=== PATIENT | female | born 1960 | race Caucasian/White ===

== ENCOUNTER 2018-05-29 13:08 | Emergency (ER) | payer OTHER ==
[2018-05-29] MEDS ORDERED: FENTANYL CITR 100 MCG/2 ML ONE (13:41)
[2018-05-29] MEDS ORDERED: ONDANSETRON 4 MG/2 ML VIAL ONE (13:41)
[2018-05-29 13:54] LABS: Absolute Lymphocytes (CBC) 2.6 K/uL (0.7-4.9); Absolute Monocytes 0.7 K/uL (0.1-1.3); Absolute Neutrophil 6.2 K/uL (1.8-8.0); Basophils % 0.9 % (0-1.3); Eosinophils % 5.8 % (0-4.4); Hematocrit 41.3 % (36.0-45.0); Lymphocytes % 25.6 % (15.3-44.8); Monocytes % 6.5 % (3.3-12.3)
[2018-05-29 14:11] LABS: Albumin 4.1 g/dL (3.4-5.0); Bilirubin Direct 0.1 mg/dL (0-0.2); Bilirubin Total 0.5 mg/dL (0.2-1.0); Potassium 3.3 mmol/L (3.5-5.1); Protein, Total 8.2 g/dL (6.4-8.2)
--- NOTE | 2018-05-29 14:57 | RAD REPORT ---
EXAM DESCRIPTION: CTAbdomen Pelvis W Contrast - 05/29/2018 2:29 pm CLINICAL HISTORY: Abdominal pain. iv only;Abd pain COMPARISON: Head C Spine Cap W Con dated 08/02/2016 TECHNIQUE: Biphasic CT imaging of the abdomen and pelvis was performed with 100 ml non-ionic IV cont rast. All CT scans are performed using dose optimization technique as appropriate and may include automated exposure control or mA/KV adjustment according to patient size. FINDINGS: The lung bases are clear. Advanced fatty liver infiltration is noted. Vague low-density area is seen in the inferior right lobe of the liver measuring 12 mm, incompletely characterized. An aggressive mass is felt to be on likely . No intra or extrahepatic biliary dilatation seen. The spleen, pancreas, adrenal glands and kidneys within normal limits. No bowel obstruction, free air, free fluid or abscess. Sigmoid diverticulosis coli is present without diverticulitis. The appendix is mildly prominent in size and contains hyperdense material within the lumen. The appendix measures 11 mm in short axis. No significant periappendiceal fat stranding is se en. No evidence of significant lymphadenopathy. Postsurgical changes affect the lower lumbar spine. IMPRESSION: The appendix is prominent in size in the right lower quadrant measuring 11-12 mm. High d ensity material is present within the appendix lumen which could represent a large appendicolith. No significant periappendiceal fat stranding is seen, however advise physical exam correlation for possi ble early appendicitis. Advanced fatty liver. Mild sigmoid diverticulosis is present without diverticulitis.
--- NOTE | 2018-05-29 15:21 | ER ---
Nurse's Notes [facility] Name: Leonarda Hopkins Age: 57 yrs Sex: Female : 1960 Arrival Date: 05/29/2018 Time: 13:04 Bed 20 Private MD: Diagnosis: Diverticulosis of large intestine without perforation or abscess without bleeding;Lower abdominal pain, unspecified Presentation: 05/29 13:04 Presenting complaint: Patient states: LLQ pain x 2 days, denies n/v/d. Transition of sv care: patient was not received from another setting of care. Onset of symptoms was May 27, 2018. Care prior to arrival: None. 13:04 Method Of Arrival: Ambulatory sv 13:04 Acuity: MATTHEW 2 sv Historical: - Allergies: 13:05 No Known Allergies; sv - PMHx: 13:05 Hypertension; sv - PSHx: 13:05 back; sv - Immunization history:: Flu vaccine is not up to date. - Social history:: Smoking status: Patient/guardian denies using tobacco. - Ebola Screening: : No symptoms or risks identified at this time. Screenin:31 Abuse screen: Denies threats or abuse. Nutritional screening: No deficits noted. em Tuberculosis screening: No symptoms or risk factors identified. Fall Risk None identified. Assessment: 13:31 General: Appears in no apparent distress. uncomfortable, Behavior is calm, cooperative, em Denies fever. Pain: Complains of pain in left lower quadrant Pain currently is 8 out of 10 on a pain scale. Quality of pain is described as stabbing, Pain began 2-3 days ago. Neuro: Level of Consciousness is awake, alert, obeys commands, Oriented to person, place, time, situation. Cardiovascular: Capillary refill < 3 seconds Patient's skin is warm and dry. Respiratory: Airway is patent Respiratory effort is even, unlabored, Respiratory pattern is regular, symmetrical. GI: Abdomen is flat, Bowel sounds present X 4 quads. Abd is soft X 4 quads Abdomen is tender to palpation in left lower quadrant Patient currently denies diarrhea, nausea, vomiting. : No signs and/or symptoms were reported regarding the genitourinary system. Derm: Skin is intact, is healthy with good turgor, Skin is pink, warm \T\ dry. Musculoskeletal: Range of motion: intact in all extremities. 13:35 General: The previous assessment is accurate, call light remains within reach. ss 15:04 Reassessment: Patient appears in no apparent distress at this time. Patient and/or em family updated on plan of care and expected duration. Pain level reassessed. Patient is alert, oriented x 3, equal unlabored respirations, skin warm/dry/pink. pending results from CT. Vital Signs: 13:05 BP 185 / 112; Pulse 93; Resp 18; Temp 97.9; Pulse Ox 99% ; Weight 72.57 kg; Height 5 sv ft. 4 in. (162.56 cm); Pain 8/10; 13:30 BP 153 / 83; Pulse 68; Resp 16; Pulse Ox 100% on R/A; Pain 8/10; em 15:05 BP 139 / 85; Pulse 75; Resp 18; Pulse Ox 99% on R/A; em 13:05 Body Mass Index 27.46 (72.57 kg, 162.56 cm) sv ED Course: 13:04 Patient arrived in ED. sv 13:05 Triage completed. sv 13:06 Arm band placed on. sv 13:12 Jesse Euceda PA is PHCP. jr8 13:12 Sai Pang MD is Attending Physician. jr8 13:20 Juanpablo Diez LVN is Primary Nurse. em 13:31 Radiology exam delayed due to lab results not completed at this time. (BUN/Creatinine). vm2 13:31 Patient has correct armband on for positive identification. Placed in gown. Bed in low em position. Call light in reach. Adult w/ patient. Pulse ox on. NIBP on. 13:40 Initial lab(s) drawn, by me, sent to lab. Inserted saline lock: 20 gauge in right em antecubital area, using aseptic technique. Blood collected. 14:[address] vm2 14:27 CT completed. Patient tolerated procedure well. Patient moved back from CT. vm2 15:03 Urine collected: clean catch specimen, clear. dh3 15:20 Jeremiah Sosa MD is Referral Physician. jr8 15:25 No provider procedures requiring assistance completed. IV discontinued, intact, em bleeding controlled, No redness/swelling at site. Pressure dressing applied. Administered Medications: 13:42 Drug: fentaNYL (PF) 50 mcg Route: IVP; Site: right antecubital; 15:04 Follow up: Response: No adverse reaction em 13:42 Drug: Zofran 4 mg Route: IVP; Site: right antecubital; ss 15:04 Follow up: Response: No adverse reaction em Outcome: 15:21 Discharge ordered by MD. barboza 15:25 Discharged to home ambulatory, with family. em 15:25 Condition: good 15:25 Discharge instructions given to patient, Instructed on discharge instructions, follow up and referral plans. no drinking with medication, no driving heavy equipment, medication usage, Demonstrated understanding of instructions, follow-up care, medications, Prescriptions given X 3. 15:34 Patient left the ED. em Signatures: Francoise Chen RN RN Juanpablo Diez, WELDING MACHINE FEEDER WELDING MACHINE FEEDER em Kimberley Tamez RN RN Jesse Euceda, CHAY CARTWRIGHT jrMelvi Polo 2 Marsha Isabel 3 Corrections: (The following items were deleted from the chart) 13:07 13:04 Acuity: MATTHEW 3 sv sv 13:07 13:05 Pulse 93bpm; Resp 18bpm; Pulse Ox 99%; Temp 97.9F; 72.57 kg; Height 5 ft. 4 in.; sv BMI: 27.4; Pain 8/10; sv
--- NOTE | 2018-05-29 15:22 | EDPHYS ---
Physician Documentation [facility] Name: Leonarda Hopkins Age: 57 yrs Sex: Female : 1960 Arrival Date: 05/29/2018 Time: 13:04 Bed 20 Private MD: ED Physician Sai Pang HPI: 05/29 14:03 This 57 yrs old Female presents to ER via Ambulatory with complaints of jr8 Abdominal Pain. 14:03 The patient presents with abdominal pain in the left lower quadrant. Onset: The jr8 symptoms/episode began/occurred acutely, 3 day(s) ago. The symptoms do not radiate. Associated signs and symptoms: none. The symptoms are described as stabbing. Modifying factors: The symptoms are alleviated by nothing, the symptoms are aggravated by nothing. Severity of pain: At its worst the pain was moderate in the emergency department the pain is unchanged. The patient has not experienced similar symptoms in the past. The patient has not recently seen a physician. Historical: - Allergies: 13:05 No Known Allergies; sv - PMHx: 13:05 Hypertension; sv - PSHx: 13:05 back; sv - Immunization history:: Flu vaccine is not up to date. - Social history:: Smoking status: Patient/guardian denies using tobacco. - Ebola Screening: : No symptoms or risks identified at this time. ROS: 14:03 Eyes: Negative for injury, pain, redness, and discharge, ENT: Negative for injury, jr8 pain, and discharge, Neck: Negative for injury, pain, and swelling, Respiratory: Negative for shortness of breath, cough, wheezing, and pleuritic chest pain, Back: Negative for injury and pain, MS/Extremity: Negative for injury and deformity, Skin: Negative for injury, rash, and discoloration, Neuro: Negative for headache, weakness, numbness, tingling, and seizure. 14:03 Abdomen/GI: Positive for abdominal pain, Negative for nausea, vomiting, and diarrhea, abdominal cramps, abdominal distension, anorexia, dysphagia, hematemesis, black/tarry stool, rectal pain, rectal bleeding, bowel incontinence, flatulence. Exam: 14:03 Eyes: Pupils equal round and reactive to light, extra-ocular motions intact. Lids and jr8 lashes normal. Conjunctiva and sclera are non-icteric and not injected. Cornea within normal limits. Periorbital areas with no swelling, redness, or edema. ENT: Nares patent. No nasal discharge, no septal abnormalities noted. Tympanic membranes are normal and external auditory canals are clear. Oropharynx with no redness, swelling, or masses, exudates, or evidence of obstruction, uvula midline. Mucous membranes moist. Neck: Trachea midline, no thyromegaly or masses palpated, and no cervical lymphadenopathy. Supple, full range of motion without nuchal rigidity, or vertebral point tenderness. No Meningismus. Cardiovascular: Regular rate and rhythm with a normal S1 and S2. No gallops, murmurs, or rubs. Normal PMI, no JVD. No pulse deficits. Respiratory: Lungs have equal breath sounds bilaterally, clear to auscultation and percussion. No rales, rhonchi or wheezes noted. No increased work of breathing, no retractions or nasal flaring. Back: No spinal tenderness. No costovertebral tenderness. Full range of motion. Skin: Warm, dry with normal turgor. Normal color with no rashes, no lesions, and no evidence of cellulitis. MS/ Extremity: Pulses equal, no cyanosis. Neurovascular intact. Full, normal range of motion. Neuro: Awake and alert, GCS 15, oriented to person, place, time, and situation. Cranial nerves II-XII grossly intact. Motor strength 5/5 in all extremities. Sensory grossly intact. Cerebellar exam normal. Normal gait. 14:03 Abdomen/GI: Inspection: abdomen appears normal, Bowel sounds: active, all quadrants, Palpation: soft, in all quadrants, moderate abdominal tenderness, in the left lower quadrant, mass, is not appreciated, rebound tenderness, is not appreciated, voluntary guarding, is not appreciated, involuntary guarding, is not appreciated, no appreciated organomegaly, Indicators: McBurney's point is not tender, Munoz's sign is negative, Rovsing's sign is negative, Liver: tenderness, is not appreciated. Vital Signs: 13:05 BP 185 / 112; Pulse 93; Resp 18; Temp 97.9; Pulse Ox 99% ; Weight 72.57 kg; Height 5 sv ft. 4 in. (162.56 cm); Pain 8/10; 13:30 BP 153 / 83; Pulse 68; Resp 16; Pulse Ox 100% on R/A; Pain 8/10; em 15:05 BP 139 / 85; Pulse 75; Resp 18; Pulse Ox 99% on R/A; em 13:05 Body Mass Index 27.46 (72.57 kg, 162.56 cm) sv MDM: 13:12 Patient medically screened. jr8 15:13 Differential diagnosis: bowel obstruction, diverticulitis, non-specific abd pain, jr8 Pyelonephritis, Ureterolithiasis, urinary tract infection, ovarian cysts. Data reviewed: vital signs, nurses notes, lab test result(s), radiologic studies, CT scan, and as a result, I will discharge patient. Data interpreted: Pulse oximetry: on room air is 99 %. Interpretation: normal. Counseling: I had a detailed discussion with the patient and/or guardian regarding: the historical points, exam findings, and any diagnostic results supporting the discharge/admit diagnosis, lab results, radiology results, the need for outpatient follow up, a family practitioner, a microfilm processor, to return to the emergency department if symptoms worsen or persist or if there are any questions or concerns that arise at home. Response to treatment: the patient's symptoms have mildly improved after treatment. ED course: Patient has not had pain to right side of abdomen. Reassessed and still without pain on that side. Pain only to LLQ. Diverticulosis on scan seen without any other acute findings. Will treat as a subclinical infection of that area with antibiotics since pain is persisting. Otherwise needs to f/u with GI. If worse to come back for further evaluation. Patient good with this plan . 05/29 13:13 Order name: Basic Metabolic Panel [facility] 05/29 13:13 Order name: CBC with Diff 05/29 13:13 Order name: Creatinine for Radiology 05/29 13:13 Order name: Hepatic Function 05/29 13:13 Order name: Lipase [facility] 05/29 14:07 Order name: Creatinine (Radiology Only); Complete Time: 14:34 EDKS 05/29 14:08 Order name: CBC with Automated Diff; Complete Time: 14:34 EDKS 05/29 14:12 Order name: Basic Metabolic Panel; Complete Time: 14:34 EDKS 05/29 14:12 Order name: Liver (Hepatic) Function; Complete Time: 14:34 EDKS 05/29 14:12 Order name: Lipase; Complete Time: 14:34 EDKS 05/29 15:08 Order name: Urine Dipstick--Ancillary (enter results) 05/29 15:08 Order name: Urine --Ancillary (enter results) 05/29 15:26 Order name: Urine --Ancillary [facility] 05/29 15:26 Order name: Urine Dipstick-Ancillary [facility] 05/29 13:13 Order name: IV Saline Lock; Complete Time: 13:49 [facility] 05/29 13:13 Order name: Labs collected and sent; Complete Time: 13:49 [facility] 05/29 13:27 Order name: Urine Dipstick-Ancillary (obtain specimen); Complete Time: 15:03 [facility] 05/29 13:28 Order name: CT Abd/Pelvis - W/Contrast [facility] 05/29 14:58 Order name: CT; Complete Time: 14:59 EDMS Administered Medications: 13:42 Drug: fentaNYL (PF) 50 mcg Route: IVP; Site: right antecubital; ss 15:04 Follow up: Response: No adverse reaction em 13:42 Drug: Zofran 4 mg Route: IVP; Site: right antecubital; ss 15:04 Follow up: Response: No adverse reaction em Disposition: 16:44 Co-signature as Attending Physician, Sai Pang MD. ma2 Disposition: 05/29/18 15:21 Discharged to Home. Impression: Diverticulosis of large intestine without perforation or abscess without bleeding, Lower abdominal pain, unspecified. - Condition is Stable. - Discharge Instructions: Abdominal Pain, Adult, Diverticulosis. - Prescriptions for Cipro 500 mg Oral Tablet - take 1 tablet by ORAL route every 12 hours for 10 days; 20 tablet. Flagyl 500 mg Oral Tablet - take 1 tablet by ORAL route every 6 hours for 10 days; 40 tablet. Tylenol- Codeine #3 300-30 mg Oral Tablet - take 2 tablets by ORAL route every 6 hours As needed; 12 tablet. - Medication Reconciliation Form, Thank You Letter, Antibiotic Education, Prescription Opioid Use form. - Follow up: Jeremiah Sosa MD; When: 5 - 6 days; Reason: Recheck today's complaints, Continuance of care, Re-evaluation by your physician. - Problem is new. - Symptoms have improved. Signatures: Dispatcher [facility] Francoise Chan RN RN Juanpablo Gauthier, DRAWBENCH OPERATOR HELPER DRAWBENCH OPERATOR HELPER Kimberley Combs, TOMASA RN Jesse Madera PA PA jr8 Sai Pang MD MD ma2 Corrections: (The following items were deleted from the chart) 15:34 15:21 05/29/2018 15:21 Discharged to Home. Impression: Diverticulosis of large em intestine without perforation or abscess without bleeding; Lower abdominal pain, unspecified. Condition is Stable. Forms are Medication Reconciliation Form, Thank You Letter, Antibiotic Education, Prescription Opioid Use. Follow up: Jeremiah Sosa; When: 5 - 6 days; Reason: Recheck today's complaints, Continuance of care, Re-evaluation by your physician. Problem is new. Symptoms have improved. jr8
[2018-05-29 15:25] LABS: Urine Blood TRACE (NEG); Urine Glucose NEGATIVE (NEG); Urine Protein NEGATIVE (NEG); Urine Specific Gravity 1.015 (1.005-1.030)
== END 2018-05-29 15:34 | disposition home or self-care (01) ==
LOC: ER 13:08
DX: K57.30 Diverticulosis of large intestine without perforation or abscess without bleeding (principal); I10 Essential (primary) hypertension
CPT/HCPCS: 36415; 74177; 80048; 80076; 81003; 81025; 83690; 85025; 96374; 96375; 99284; J2405; J3010; Q9967

== ENCOUNTER 2018-08-19 08:37 | Observation (INO) | payer OTHER ==
[2018-08-19] MEDS ORDERED: ONDANSETRON 4 MG/2 ML VIAL ONE ×2 (09:28→16:39)
[2018-08-19] MEDS ORDERED: NA CHLORIDE 0.9% 1,000 ML ONE (09:28)
[2018-08-19 09:32] LABS: Absolute Lymphocytes (CBC) 0.9 K/uL (0.7-4.9); Absolute Monocytes 0.4 K/uL (0.1-1.3); Absolute Neutrophil 17.4 K/uL (1.8-8.0); Basophils % 0.4 % (0-1.3); Hematocrit 42.8 % (36.0-45.0); Lymphocytes % 4.6 % (15.3-44.8); Monocytes % 2.3 % (3.3-12.3); RBC Red Blood Cell Count 4.84 M/uL (3.86-4.86)
[2018-08-19 09:54] LABS: Albumin 4.2 g/dL (3.4-5.0); Bilirubin Direct 0.2 mg/dL (0-0.2); Bilirubin Total 0.8 mg/dL (0.2-1.0); Potassium 3.1 mmol/L (3.5-5.1); Protein, Total 8.8 g/dL (6.4-8.2)
[2018-08-19 11:35] LABS: Blood Morphology Comment NOT SEEN (NOT SEEN); Platelet Estimate ADEQ; Urine White Blood Cell Casts OK
[2018-08-19 11:40] LABS: Urine Blood 1+ (NEG); Urine Glucose NEGATIVE (NEG); Urine Protein 2+ (NEG); Urine Specific Gravity 1.025 (1.005-1.030)
--- NOTE | 2018-08-19 12:01 | EKG ---
Test Date: 2018-08-19 Test Time: 09:07:29 Sports Equipment Racker: GLORIA MEASUREMENT RESULTS: Intervals: Rate: 70 NH: 152 QRSD: 94 QT: 412 QTc: 444 [place]: P: 50 NH: 152 QRS: 21 T: 48 INTERPRETIVE STATEMENTS: Normal sinus rhythm Normal ECG Compared to ECG 08/02/2016 01:05:42 No significant changes Electronically Signed On 08-19-18 12:00:36 CDT by Jae Diamond
[2018-08-19] MEDS ORDERED: POTASSIUM CL SA 10 MEQ TAB PO ONE (12:02)
[2018-08-19] MEDS ORDERED: OSELTAMIVIR 75 MG CAP ONE (12:02)
--- NOTE | 2018-08-19 12:18 | RAD REPORT ---
EXAM DESCRIPTION: CTAbdomen Pelvis W Contrast - 08/19/2018 12:03 pm CLINICAL HISTORY: Abdominal pain. Abd pain;Nausea / vomiting COMPARISON: Abdomen Pelvis W Contrast dated 05/29/2018 TECHNIQUE: Biphasic CT imaging of the abdomen and pelvis was performed with 100 ml non-ionic IV cont rast. All CT scans are performed using dose optimization technique as appropriate and may include automated exposure control or mA/KV adjustment according to patient size. FINDINGS: The lung bases are clear. The liver demonstrates mild fatty liver. The spleen, pancreas, adrenal glands and kidneys are within normal limits. No bowel obstruction, free air, free fluid or abscess. The appendix is dilated to 17 mm and inflamed compatible with acute appendicitis. An appendicolith is noted at the base of the appendix. No evide nce of significant lymphadenopathy. No suspicious bony findings. IMPRESSION: Acute appendicitis.
--- NOTE | 2018-08-19 12:29 | EDPHYS ---
Physician Documentation [facility] Name: Leonarda Hopkins Age: 58 yrs Sex: Female : 1960 Arrival Date: 08/19/2018 Time: 08:40 Bed 14 Private MD: Jeremiah Cedeno E ED Physician Yaw Fay HPI: 08/19 08:54 This 58 yrs old Female presents to ER via Ambulatory with complaints of rn Headache, Vomiting. 08:55 REports felt sick since yesterday, reports congestion, vomiting, abd cramping/pain, has rn thrown up a lot of times today, no known sick contacts, no diarrhea, no chest pain/sob/neck pain or stiffness. States main complaint is abd pain and muscle aches diffusely. . Onset: The symptoms/episode began/occurred yesterday. Severity of symptoms: At their worst the symptoms were mild in the emergency department the symptoms are unchanged. The patient has experienced similar episodes in the past. The patient has not recently seen a physician. Historical: - Allergies: 08:45 No Known Allergies; sv - PMHx: 08:45 Hypertension; sv - PSHx: 08:45 back; sv - Immunization history:: Adult Immunizations up to date. - Family history:: not pertinent. - Ebola Screening: : Patient denies travel to an Ebola-affected area in the 21 days before illness onset. - Hospitalizations: : No recent hospitalization is reported. ROS: 08:55 Constitutional: + fever Eyes: Negative for injury, pain, redness, and discharge, ENT: rn Negative for injury, pain, and discharge, Neck: Negative for injury, pain, and swelling, Cardiovascular: Negative for chest pain, palpitations, and edema, Respiratory: Negative for shortness of breath, cough, wheezing, and pleuritic chest pain, Abdomen/GI: + abdominal pain and nausea/vomiting, negative for diarrhea Back: Negative for injury and pain, : Negative for injury, bleeding, discharge, and swelling, MS/Extremity: Negative for injury and deformity, Skin: Negative for injury, rash, and discoloration, Neuro: Negative for numbness, tingling, and seizure. Exam: 08:55 Constitutional: This is a well developed, well nourished patient who is awake, alert, rn and in no acute distress. Head/Face: Normocephalic, atraumatic. Eyes: Pupils equal round and reactive to light, extra-ocular motions intact. Lids and lashes normal. Conjunctiva and sclera are non-icteric and not injected. Cornea within normal limits. Periorbital areas with no swelling, redness, or edema. ENT: dry MM, no stridor, no oral swelling Neck: Trachea midline, no thyromegaly or masses palpated, and no cervical lymphadenopathy. Supple, full range of motion without nuchal rigidity, or vertebral point tenderness. No Meningismus. Abdomen/GI: soft, + mild diffuse abd tenderness, no rebound Skin: Warm, dry, no evidence of cellulitis. MS/ Extremity: Pulses equal, no cyanosis. Neurovascular intact. Full, normal range of motion. Equal circumference. Neuro: Awake and alert, GCS 15, oriented to person, place, time, and situation. Cranial nerves II-XII grossly intact. Motor strength 5/5 in all extremities. Sensory grossly intact. Cerebellar exam normal. 09:13 ECG was reviewed by the Attending Physician. rn Vital Signs: 08:45 BP 175 / 94; Pulse 69; Resp 18; Temp 98; Pulse Ox 99% ; Weight 72.57 kg; Height 5 ft. 4 sv in. (162.56 cm); Pain 10/10; 10:02 BP 184 / 105; Pulse 66; Resp 14; Pulse Ox 100% ; bp 11:44 BP 157 / 87; Pulse 62; Resp 18; Pulse Ox 97% on R/A; aj1 12:27 BP 144 / 93; Pulse 88; Resp 18; Pulse Ox 98% on R/A; aj1 13:30 BP 166 / 66; Pulse 60; Resp 18; Pulse Ox 97% on R/A; aj1 14:42 BP 164 / 87; Pulse 85; Resp 18; Pulse Ox 97% ; aj1 08:45 Body Mass Index 27.46 (72.57 kg, 162.56 cm) sv MDM: 08:43 Patient medically screened. rn 12:28 Differential Diagnosis flu, appendicitis, colitis. Data reviewed: vital signs, nurses rn notes, lab test result(s), radiologic studies, CT scan, and as a result, I will admit patient. Counseling: I had a detailed discussion with the patient and/or guardian regarding: the historical points, exam findings, and any diagnostic results supporting the discharge/admit diagnosis, lab results, radiology results, the need for further work-up and treatment in the hospital. Response to treatment: the patient's symptoms have mildly improved after treatment, and as a result, I will admit patient. Admission orders: after a detailed discussion of the patient's condition and case, the admit orders are written by me. ED course: COnsulted with Kris Kingsley, will admit to his service for acute appendicitis, also + for flua/flu b. . 08/19 08:50 Order name: Basic Metabolic Panel; Complete Time: 09:56 rn 08/19 08:50 Order name: CBC with Diff; Complete Time: 12:21 rn 08/19 08:50 Order name: Hepatic Function; Complete Time: 09:56 rn 08/19 08:50 Order name: Lipase; Complete Time: 09:56 rn 08/19 08:50 Order name: Flu; Complete Time: 09:53 rn 08/19 11:09 Order name: Urine Dipstick--Ancillary (enter results); Complete Time: 12:21 bd 08/19 09:57 Order name: CT Abd/Pelvis - W/Contrast; Complete Time: 12:21 rn 08/19 11:35 Order name: CBC Smear Scan; Complete Time: 12:21 EDMS 08/19 08:50 Order name: IV Saline Lock; Complete Time: 09:17 rn 08/19 08:50 Order name: Labs collected and sent; Complete Time: 09:17 rn 08/19 08:50 Order name: Urine Dipstick-Ancillary (obtain specimen); Complete Time: 11:11 rn 08/19 08:50 Order name: EKG; Complete Time: 08:50 rn 08/19 08:50 Order name: EKG - Nurse/Tech; Complete Time: 09:03 rn EC:13 Rate is 70 beats/min. Rhythm is regular. QRS [place] is Normal. DE interval is normal. QRS rn interval is normal. QT interval is normal. No Q waves. T waves are Normal. No ST changes noted. Clinical impression: Normal ECG. Interpreted by me. Administered Medications: 09:15 Drug: Zofran 4 mg Route: IVP; Site: right hand; bp 11:00 Follow up: Response: No adverse reaction aj1 :15 Drug: NS 0.9% 1000 ml Route: IV; Rate: 1000 ml; Site: right wrist; bp 11:00 Follow up: IV Status: Completed infusion; IV Intake: 1000ml aj1 11:53 Drug: Potassium Chloride 40 mEq Route: PO; aj1 13:30 Follow up: Response: No adverse reaction aj1 11:53 Drug: Tamiflu 75 mg Route: PO; aj1 13:30 Follow up: Response: No adverse reaction aj1 12:39 Drug: Rocephin - (cefTRIAXone) 1 grams Route: IVPB; Infused Over: 30 mins; Site: right aj1 wrist; 12:43 Follow up: IV Status: Completed infusion; IV Intake: 10ml aj1 12:40 Drug: Flagyl 500 mg Volume: 100 ml; Route: IVPB; Rate: 200 ml/hr; Infused Over: 30 aj1 mins; Site: right wrist; 14:46 Follow up: IV Status: Completed infusion; IV Intake: 100ml aj1 Disposition: 08/19/18 12:29 Hospitalization ordered by Marin Kingsley for Inpatient Admission. Preliminary diagnosis are Acute appendicitis, Influenza due to other identified influenza virus. - Bed requested for Telemetry/MedSurg (Inpatient). - Status is Inpatient Admission. aj1 - Condition is Stable. - Problem is new. - Symptoms have improved. UTI on Admission? No Signatures: Dispatcher [employer] EDMS Fouzia Cueto Angela, RN RN aj1 Francoise Chen RN RN Yaw Fay MD MD rn Peltier, Augustin, RN RN bp Corrections: (The following items were deleted from the chart) 12:54 12:29 Hospitalization Ordered by Marin Kingsley MD for Inpatient Admission. Preliminary bd diagnosis is Acute appendicitis; Influenza due to other identified influenza virus. Bed requested for Telemetry/MedSurg (Inpatient). Status is Inpatient Admission. Condition is Stable. Problem is new. Symptoms have improved. UTI on Admission? No. rn 14:47 12:54 08/19/2018 12:29 Hospitalization Ordered by Marin Kingsley MD for Inpatient aj1 Admission. Preliminary diagnosis is Acute appendicitis; Influenza due to other identified influenza virus. Bed requested for Telemetry/MedSurg (Inpatient). Status is Inpatient Admission. Condition is Stable. Problem is new. Symptoms have improved. UTI on Admission? No. bd
--- NOTE | 2018-08-19 12:29 | ER ---
Nurse's Notes [facility] Name: Leonarda Hopkins Age: 58 yrs Sex: Female : 1960 Arrival Date: 08/19/2018 Time: 08:40 Bed 14 Private MD: Jeremiah Cedeno E Diagnosis: Acute appendicitis;Influenza due to other identified influenza virus Presentation: 08/19 08:40 Presenting complaint: Patient states: bodyaches, chills, vomiting, frontal headache x 1 sv day. Transition of care: patient was not received from another setting of care. Onset of symptoms was August 18, 2018. Care prior to arrival: None. 08:40 Method Of Arrival: Ambulatory sv 08:40 Acuity: MATTHEW 3 sv 14:42 Initial Sepsis Screen: Does the patient meet any 2 criteria? No. Patient's initial aj1 sepsis screen is negative. Does the patient have a suspected source of infection? No. Patient's initial sepsis screen is negative. 14:43 Risk Assessment: Do you want to hurt yourself or someone else? Patient reports no aj1 desire to harm self or others. Triage Assessment: 08:45 General: Appears in no apparent distress. uncomfortable, Behavior is calm, cooperative, sv appropriate for age. Pain: Complains of pain in forehead Pain currently is 10 out of 10 on a pain scale. Pain began 1 day ago. Is continuous. Neuro: Level of Consciousness is awake, alert, obeys commands, Oriented to person, place, time, situation, Gait is steady. Respiratory: Respiratory effort is even, unlabored, Respiratory pattern is regular, symmetrical. Historical: - Allergies: 08:45 No Known Allergies; sv - PMHx: 08:45 Hypertension; sv - PSHx: 08:45 back; sv - Immunization history:: Adult Immunizations up to date. - Family history:: not pertinent. - Ebola Screening: : Patient denies travel to an Ebola-affected area in the 21 days before illness onset. - Hospitalizations: : No recent hospitalization is reported. Screenin:15 Abuse screen: Denies threats or abuse. Denies injuries from another. Nutritional bp screening: No deficits noted. Tuberculosis screening: No symptoms or risk factors identified. Fall Risk None identified. Assessment: 08:45 General: Appears in no apparent distress. uncomfortable. Pain: Complains of pain in bp forehead. Neuro: No deficits noted. Cardiovascular: No deficits noted. Respiratory: Airway is patent Respiratory effort is even, unlabored, Respiratory pattern is regular, symmetrical. GI: Reports vomiting. 10:31 Reassessment: PO CONTRAST COMPLETED, CT NOTIFIED. bp 11:43 Reassessment: Patient appears in no apparent distress at this time. No changes from aj1 previously documented assessment. Patient and/or family updated on plan of care and expected duration. Pain level reassessed. Patient is alert, oriented x 3, equal unlabored respirations, skin warm/dry/pink. 12:25 General: Appears in no apparent distress. uncomfortable, Behavior is calm, cooperative, aj1 appropriate for age. Pain: Complains of pain in abdomen and forehead. Neuro: Level of Consciousness is awake, alert, obeys commands, Oriented to person, place, time, situation. Cardiovascular: Patient's skin is warm and dry. Respiratory: Airway is patent Respiratory effort is even, unlabored, Respiratory pattern is regular, symmetrical. GI: Abdomen is non-distended, Abd is soft X 4 quads Reports nausea, vomiting. Derm: Skin is pink, warm \T\ dry. normal. Musculoskeletal: Circulation, motion, and sensation intact. 13:30 Reassessment: Patient appears in no apparent distress at this time. No changes from aj1 previously documented assessment. Patient and/or family updated on plan of care and expected duration. Pain level reassessed. Patient is alert, oriented x 3, equal unlabored respirations, skin warm/dry/pink. 14:30 Reassessment: Patient appears in no apparent distress at this time. No changes from aj1 previously documented assessment. Patient and/or family updated on plan of care and expected duration. Pain level reassessed. Patient is alert, oriented x 3, equal unlabored respirations, skin warm/dry/pink. 14:40 Reassessment: Dr. Wilkins at bedside, consent obtained. aj1 Vital Signs: 08:45 BP 175 / 94; Pulse 69; Resp 18; Temp 98; Pulse Ox 99% ; Weight 72.57 kg; Height 5 ft. 4 sv in. (162.56 cm); Pain 10/10; 10:02 BP 184 / 105; Pulse 66; Resp 14; Pulse Ox 100% ; bp 11:44 BP 157 / 87; Pulse 62; Resp 18; Pulse Ox 97% on R/A; aj1 12:27 BP 144 / 93; Pulse 88; Resp 18; Pulse Ox 98% on R/A; aj1 13:30 BP 166 / 66; Pulse 60; Resp 18; Pulse Ox 97% on R/A; aj1 14:42 BP 164 / 87; Pulse 85; Resp 18; Pulse Ox 97% ; aj1 08:45 Body Mass Index 27.46 (72.57 kg, 162.56 cm) sv ED Course: 08:40 Patient arrived in ED. mr 08:40 Jeremiah Cedeno MD is Private Physician. mr 08:43 Yaw Fay MD is Attending Physician. rn 08:44 Triage completed. sv 08:45 Arm band placed on. sv 08:57 Augustin Perez RN is Primary Nurse. bp 09:14 EKG done, by train electronic technician. reviewed by Yaw Fay MD. at1 09:15 Patient has correct armband on for positive identification. Bed in low position. Call bp light in reach. Side rails up X2. Adult w/ patient. 09:15 Inserted saline lock: 20 gauge in right antecubital area, using aseptic technique. bp Blood collected. 11:58 CT completed. Patient tolerated procedure well. Patient moved to CT via wheelchair. ls3 12:05 CT Abd/Pelvis - W/Contrast In Process Unspecified. EDMS 12:29 Marin Wilkins MD is Hospitalizing Provider. rn 14:42 No provider procedures requiring assistance completed. Patient admitted, IV remains in aj1 place. 14:43 Report given to TOMASA Fernandez on 2nd floor. aj1 Administered Medications: 09:15 Drug: Zofran 4 mg Route: IVP; Site: right hand; bp 11:00 Follow up: Response: No adverse reaction aj1 09:15 Drug: NS 0.9% 1000 ml Route: IV; Rate: 1000 ml; Site: right wrist; bp 11:00 Follow up: IV Status: Completed infusion; IV Intake: 1000ml aj1 11:53 Drug: Potassium Chloride 40 mEq Route: PO; aj1 13:30 Follow up: Response: No adverse reaction aj1 11:53 Drug: Tamiflu 75 mg Route: PO; aj1 13:30 Follow up: Response: No adverse reaction aj1 12:39 Drug: Rocephin - (cefTRIAXone) 1 grams Route: IVPB; Infused Over: 30 mins; Site: right aj1 wrist; 12:43 Follow up: IV Status: Completed infusion; IV Intake: 10ml aj1 12:40 Drug: Flagyl 500 mg Volume: 100 ml; Route: IVPB; Rate: 200 ml/hr; Infused Over: 30 aj1 mins; Site: right wrist; 14:46 Follow up: IV Status: Completed infusion; IV Intake: 100ml aj1 Intake: 11:00 IV: 1000ml; Total: 1000ml. aj1 12:43 IV: 10ml; Total: 1010ml. aj1 14:46 IV: 100ml; Total: 1110ml. aj1 Outcome: 12:29 Decision to Hospitalize by Provider. rn 14:46 Admitted to Med/surg accompanied by tech, via wheelchair. aj1 14:46 Condition: stable 14:46 Discharge instructions given to patient, Instructed on the need for admit, Demonstrated understanding of instructions. 14:47 Patient left the ED. aj1 Signatures: Dispatcher [employer] EDCindi Molina RN RN aj1 Francoise Chen RN RN sv Rivera, Mary mr Nieto, Roman, MD MD rn Gonzales, Amanda, sugar boiler EKG Tat1 Augustin Perez RN RN bp Siler, Lynzie ls3 Corrections: (The following items were deleted from the chart) 08:46 08:40 Acuity: MATTHEW 4 sv sv
[2018-08-19] MEDS ORDERED: CEFTRIAXONE/SWI 1gm 1 GM/10 ML SYR ONE (12:44)
[2018-08-19] MEDS ORDERED: METRONIDAZOLE 500mg IVPB 500 MG/100 ML BAG IV ONE (12:45)
[2018-08-19] MEDS ORDERED: ONDANSETRON 4 MG/2 ML VIAL IV PRN (14:55)
[2018-08-19] MEDS ORDERED: MORPHINE 4 MG/ML SYR IV PRN (14:55)
[2018-08-19] MEDS: D5 0.45 NS 1,000 ML IV SCH (15:35)
[2018-08-19] MEDS ORDERED: Ringers Lactate 1,000 ML IV ONE (16:28)
[2018-08-19] MEDS ORDERED: GLYCOPYRROLATE 0.2 MG/ML SYR ONE (16:38)
[2018-08-19] MEDS ORDERED: PROPOFOL 200 MG/20 ML VIAL IV ONE (16:38)
[2018-08-19] MEDS ORDERED: MIDAZOLAM HCL 2 MG/2 ML INJ ONE (16:38)
[2018-08-19] MEDS ORDERED: FENTANYL CITR 100 MCG/2 ML ONE (16:38)
[2018-08-19 16:39] LABS: Urine Specific Gravity 1.025 (1.005-1.030)
[2018-08-19] MEDS ORDERED: MORPHINE 10 MG/ML VIAL ONE (16:39)
[2018-08-19] MEDS ORDERED: NEOSTIGMINE 1 MG/ML -10 ML VIAL ONE (16:39)
[2018-08-19] MEDS ORDERED: KETOROLAC 30 MG/ML INJ ONE (16:40)
[2018-08-19] MEDS ORDERED: LIDOCAINE 1% MPF 5 ML VIAL ONE (16:40)
[2018-08-19] MEDS ORDERED: ROCURONIUM 50 MG/5 ML VIAL IV ONE (16:40)
[2018-08-19 17:12] LABS: Urine Appearance CLEAR; Urine Bilirubin NEGATIVE (NEG); Urine Blood 1+ (NEG); Urine Color YELLOW; Urine Glucose NEGATIVE (NEG); Urine Protein 1+ (NEG); Urine Specific Gravity >=1.030 (1.005-1.030); Urine Urobilinogen 0.2 mg/dL (0.2-1.0)
[2018-08-19 17:34] LABS: Urine Bacteria <20 /HPF (<20); Urine Culture Reflex Order NOT NEEDED; Urine Mucus 1+ /HPF (NONE SEEN)
--- NOTE | 2018-08-19 17:41 | P.BOP ---
Preoperative diagnosis: acute appendicitis, Flu Postoperative diagnosis: same Primary procedure: Emergent laparoscopic appendectomy Estimated blood loss: <10cc Specimen: shad Findings: acute appendicitis Anesthesia: General Complications: None Transferred to: Recovery Room Condition: Good
[2018-08-19] MEDS ORDERED: CEFOXITIN SODIUM 1 GM/VIAL IVPB SCH (18:00)
[2018-08-19] MEDS: OSELTAMIVIR 75 MG CAP PO SCH (20:40)
[2018-08-19] MEDS: CEFOXITIN/SWI 1gm 1 GM/10 ML SYR IVP SCH (20:40)
[2018-08-19] MEDS: HYDROCODONE/APAP 7.5/325 MG TAB PO PRN (22:16)
--- NOTE | 2018-08-20 00:24 | OP ---
Date of Procedure: 08/19/2018 Surgeon: Marin Wilkins MD Preoperative Diagnoses: Acute appendicitis, flu. Postoperative Diagnoses: Acute appendicitis, flu. Procedure: Emergent laparoscopic appendectomy. Specimen: Appendix. Finding: Acute appendicitis. Anesthesia: General plus local. Complications: None. Estimated Blood Loss: Less than 10 cc. Indications: This is the case of a 58-year-old patient, comes to us with acute appendicitis. Also t ested positive for influenza A and B. Benefits, alternatives, and risks of emergent laparoscopic shad endectomy were fully explained to the patient which include but are not limited to infection, bleedin g, damage to adjacent structures, anesthesia complication, PR, and even . She also understands this might not relieve any symptoms and she might need more than one surgical intervention. She unde rstood, signed a consent. Description Of Procedure: The patient was brought emergent to the operating room, placed in supine p osition. Anesthesia was done without complication. Abdominal area was prepped and draped in usual s terile fashion. Marcaine 0.5% was injected for local anesthetic, followed by sharp incision of the s kin in the infraumbilical region. Incision was carried down to the fascia, which was opened under di rect vision. Peritoneum was encountered, opened under direct vision. Vicryl #1 placed inside the fa scia. Ambrosio trocar was carefully introduced. No bleeding was obtained. I placed two more trocars, 5 mm each one of them, one in the suprapubic area and another one in the left lower quadrant using s savanna technique which consisted of local anesthetic, sharp incision of the skin, and introduction of th e trocars under direct vision. This allowed me to visualize the area of the appendix, looks indeed v tianna inflamed appendix. We noted the base of the appendix is spared from the inflammation, so we crea jie a window in that area and transected the appendix with an Endo FATOU 45 mm 3.5 and the mesoappendix with an Endo FATOU 45 mm 2.5. Also, further hemostasis was obtained with the help of Endoclips 5 mm. Appendix was removed from abdominal cavity using an EndoCatch through the umbilical incision. The a chela was inspected and profusely irrigated and suctioned. We inspected once again. No bowel leak and no bleeding. At that moment, I proceeded to remove the trocars under direct vision. Deflated the p neumoperitoneum. Closed the fascia with #1 Vicryl, irrigated subcutaneous tissues to close that with 3-0 chromic and skin with yael. Sponge count and instrument counts were correct. The patient to lerated the procedure well. The patient was sent to recovery in stable condition. SANDRA/NIKKY Voice ID: [id number] Report ID: [id number]
[2018-08-20] MEDS: CEFOXITIN/SWI 1gm 1 GM/10 ML SYR IVP SCH ×4 (00:31→17:43)
[2018-08-20] MEDS: D5 0.45 NS 1,000 ML IV SCH ×2 (00:31→11:58)
--- NOTE | 2018-08-20 03:46 | HP ---
Date of Admission: 08/19/2018 Diagnoses: Acute appendicitis. History Of Present Illness: This is the case of a 58-year-old patient coming to us complaining of ab dominal pain. She has also upper respiratory symptoms with sneezing and coughing every now and then, but the main concern was malaise and abdominal pain. She has abdominal cramping mainly in the right lower side with vomiting. She denies any dysuria, hematuria, hematochezia, or melena. Denies any r ecent travelling out of the country. Denies any family member sick at home. Allergies: NONE. Past Medical History: Hypertension. Past Surgical History: Back surgery. She does not remember the details. The patient had a colonosc opy about 3 years ago, she claimed it was negative. Family History: Noncontributory. Review of Systems: Ten points otherwise unremarkable. Physical Examination: General: The patient is awake and alert. HEENT: Pupils are equal and reactive, anicteric. Neck: Supple. Chest: Clear. Heart: S1, S2. Abdomen: Right lower quadrant tenderness with Rovsing sign positive. Breasts: Deferred. Pelvic: Deferred. Rectal: Deferred. Extremities: Good capillary refill. Neurologic: Cranial nerves 2 through 12 grossly within normal limits. Laboratory Data: Blood work shows WBC count of 18.8 with hemoglobin of 14.6. Potassium 3.1 with glu cose 167. UA shows nitrite negative. She had also a nasopharynx influenza screening that shows posi tive for influenza A and B. Assessment: It is a 58-year-old patient with hypertension, obesity, influenza positive A and B with also an acute appendicitis. The benefits and alternatives of laparoscopic possible open appendectomy were fully explained to the patient which include but are not limited to infection, bleeding, damage to adjacent structures, anesthesia complication, negative appendix, negative exploration, [place], and ev en . She also understands this might not relieve any symptoms and she might need more than one surgical intervention. She was explained the importance also and discussed the influenza treatments by her primary doctors when she gets discharge. She was also advised the importance of checking her last colonoscopy to make sure it is up to date like she claimed and also mammograms yearly. SANDRA/NIKKY Voice ID: [id number]
[2018-08-20 06:21] LABS: Absolute Lymphocytes (CBC) 2.2 K/uL (0.7-4.9); Absolute Monocytes 0.9 K/uL (0.1-1.3); Absolute Neutrophil 9.1 K/uL (1.8-8.0); Basophils % 0.8 % (0-1.3); Eosinophils % 0.8 % (0-4.4); Hematocrit 36.4 % (36.0-45.0); MPV 7.7 fL (7.6-11.3); Monocytes % 6.9 % (3.3-12.3); RBC Red Blood Cell Count 4.08 M/uL (3.86-4.86)
[2018-08-20 06:34] LABS: Potassium 3.4 mmol/L (3.5-5.1)
[2018-08-20] MEDS: OSELTAMIVIR 75 MG CAP PO SCH ×2 (08:31→20:04)
[2018-08-20] MEDS: HYDROCODONE/APAP 7.5/325 MG TAB PO PRN ×2 (08:32→16:59)
== END 2018-08-20 20:18 | disposition home or self-care (01) ==
LOC: ER 08:37 → INTOOBSV 12:30 → ERHOLD 12:30 → 2ND 14:18
PROVIDERS: ADMIT Surgery; ATTEND Surgery
PROC: 0DTJ4ZZ Resection of Appendix, Percutaneous Endoscopic Approach (ICD-10-PCS; principal; 2018-08-19 17:00)
DX: K35.80 Unspecified acute appendicitis (principal); J09.X2 Influenza due to identified novel influenza A virus with other respiratory manifestations; I10 Essential (primary) hypertension; E66.9 Obesity, unspecified; Z68.27 Body mass index [BMI] 27.0-27.9, adult
CPT/HCPCS: 93005; 85025 ×2; 81001; 80048 ×2; 36415; 81025; 80076; 88304; 81003; 83690; 87804 ×2; 74177; 99285; 44970; J2704; J2710; J2250; J3010; J0696; J7030; J2405 ×2; G0378 ×2

== ENCOUNTER 2019-10-30 11:18 | Emergency (ER) | payer OTHER ==
--- NOTE | 2019-10-30 13:06 | EDPHYS ---
Physician Documentation [facility] Name: Leonarda Hopkins Age: 59 yrs Sex: Female : 1960 Arrival Date: 10/30/2019 Time: 11:19 Bed 2 Private MD: Jeremiah Cedeno E ED Physician Yaw Fay HPI: 10/29 12:13 This 59 yrs old Female presents to ER via Ambulatory with complaints of rn Cough, Sore Throat, Body Aches. 12:13 The patient or guardian reports cough, described as mild, with no sputum. Onset: The rn symptoms/episode began/occurred today. Severity of symptoms: At their worst the symptoms were mild, in the emergency department the symptoms are unchanged. Modifying factors: The symptoms are alleviated by nothing, the symptoms are aggravated by nothing. Associated signs and symptoms: Pertinent positives: chest pain, sore throat, cough, congestion, this patient has no pertinent positive symptoms. The patient has not experienced similar symptoms in the past. The patient has not recently seen a physician. Reports began today with cough, sore throat, muscle aches, headache, neck pain, + exposure to COVID + patient. No sob. No diarrhea. + loss of sense of taste. . Historical: - Allergies: 11:40 No Known Allergies; ca1 - Home Meds: 11:40 BP meds [Active]; ca1 - PMHx: 11:40 Hypertension; Gastric Reflux; ca1 - PSHx: 11:40 back; ca1 - Immunization history:: Adult Immunizations up to date. - Social history:: Smoking status: Patient denies any tobacco usage or history of. - Family history:: not pertinent. - Hospitalizations: : No recent hospitalization is reported. ROS: 12:13 Constitutional: Negative for fever, chills, and weight loss, Eyes: Negative for injury, rn pain, redness, and discharge, Cardiovascular: Negative for chest pain, palpitations, and edema, Respiratory: + cough, neg for sob Abdomen/GI: Negative for abdominal pain, nausea, vomiting, diarrhea, and constipation, MS/Extremity: Negative for injury and deformity, Skin: Negative for injury, rash, and discoloration, Neuro: + headache and generalized weakness Exam: 12:13 Constitutional: This is a well developed, well nourished patient who is awake, alert, rn and in no acute distress. Ambulatory to room without difficulty or distress Head/Face: Normocephalic, atraumatic. Neck: Trachea midline, no thyromegaly or masses palpated, and no cervical lymphadenopathy. Supple, full range of motion without nuchal rigidity, or vertebral point tenderness. No Meningismus. Cardiovascular: Tachycardic, regular Respiratory: Speaking full sentences, unlabored. Skin: Warm, dry MS/ Extremity: Pulses equal, no cyanosis. Neurovascular intact. Full, normal range of motion. Equal circumference. Neuro: Awake and alert, GCS 15, oriented to person, place, time, and situation. Cranial nerves II-XII grossly intact. Motor strength 5/5 in all extremities. Sensory grossly intact. Cerebellar exam normal. Normal gait. Vital Signs: 11:36 BP 169 / 93; Pulse 103; Resp 16 S; Temp 98.2(TE); Pulse Ox 99% on R/A; Weight 72.57 kg ca1 (R); Height 5 ft. 4 in. (162.56 cm) (R); 11:36 Body Mass Index 27.46 (72.57 kg, 162.56 cm) ca1 MDM: 12:03 Patient medically screened. rn 13:03 Differential Diagnosis: Bronchitis Viral Syndrome Pneumonia. Data reviewed: vital rn signs, nurses notes, radiologic studies, plain films, and as a result, I will discharge patient. Test interpretation: by ED physician or midlevel provider: plain radiologic studies, CXR neg for acute pneumonia/pneumothorax. Counseling: I had a detailed discussion with the patient and/or guardian regarding: the historical points, exam findings, and any diagnostic results supporting the discharge/admit diagnosis, radiology results, the need for outpatient follow up, to return to the emergency department if symptoms worsen or persist or if there are any questions or concerns that arise at home. Special discussion: I discussed with the patient/guardian in detail that at this point there is no indication for admission to the hospital. It is understood, however, that if the symptoms persist or worsen the patient needs to return immediately for re-evaluation. ED course: No oxygen requirement, CXR neg for pneumonia, COVID sent, symptoms especially loss of taste, consistent with COVID, will quarantine and return precautions given and understood. . 10/29 12:12 Order name: COVID-19 rn 10/29 12:12 Order name: XRAY Chest (1 view); Complete Time: 14:55 rn Administered Medications: No medications were administered Disposition: 10/30/19 13:05 Discharged to Home. Impression: Cough, Viral syndrome. - Condition is Stable. - Discharge Instructions: Cough, Adult, COVID-19. - Medication Reconciliation Form, Thank You Letter, Antibiotic Education, Prescription Opioid Use form. - Follow up: Private Physician; When: As needed; Reason: Recheck today's complaints, Re-evaluation by your physician. - Problem is new. - Symptoms are unchanged. Signatures: Dispatcher [employer] Juanpablo Gupta RN RN em Yaw Fay MD MD rn Acob, TOMASA Hoffman RN ca1 Corrections: (The following items were deleted from the chart) 14:11 13:05 10/30/2019 13:05 Discharged to Home. Impression: Cough; Viral syndrome. Condition em is Stable. Forms are Medication Reconciliation Form, Thank You Letter, Antibiotic Education, Prescription Opioid Use. Follow up: Private Physician; When: As needed; Reason: Recheck today's complaints, Re-evaluation by your physician. Problem is new. Symptoms are unchanged. rn
--- NOTE | 2019-10-30 13:06 | ER ---
Nurse's Notes [facility] Name: Leonarda Hopkins Age: 59 yrs Sex: Female : 1960 Arrival Date: 10/30/2019 Time: 11:19 Bed 2 Private MD: Jeremiah Cedeno E Diagnosis: Cough;Viral syndrome Presentation: 10/29 11:36 Chief complaint: Patient states: Head been hurting most of the week. Cough started ca1 Friday. Today, just worse, my throat sore and my body aches. I was with a friend Friday and this friend just found out yesterday that one of her family member is positive of Covid. Denies fever. Denies SOB. Coronavirus screen: Patient reports a cough. Patient denies shortness of breath or difficulty breathing. Patient denies measured and/or subjective temperature greater than 100.4F prior to today's visit. Patient denies travel on a cruise ship or to a country the [facility] currently lists as an affected area. Patient reports contact with known and/or suspected case of COVID-19. Surgical mask in place, instructed to keep at all times and distance self from others in the lobby. Verbalized understanding. Ebola Screen: Patient negative for fever greater than or equal to 101.5 degrees Fahrenheit, and additional compatible Ebola Virus Disease symptoms Patient denies exposure to infectious person. Patient denies travel to an Ebola-affected area in the 21 days before illness onset. No symptoms or risks identified at this time. Initial Sepsis Screen: Does the patient meet any 2 criteria? No. Patient's initial sepsis screen is negative. Does the patient have a suspected source of infection? No. Patient's initial sepsis screen is negative. Risk Assessment: Do you want to hurt yourself or someone else? Patient reports no desire to harm self or others. Onset of symptoms was October 30, 2019. 11:36 Method Of Arrival: Ambulatory ca1 11:36 Acuity: MATTHEW 3 ca1 Historical: - Allergies: 11:40 No Known Allergies; ca1 - Home Meds: 11:40 BP meds [Active]; ca1 - PMHx: 11:40 Hypertension; Gastric Reflux; ca1 - PSHx: 11:40 back; ca1 - Immunization history:: Adult Immunizations up to date. - Social history:: Smoking status: Patient denies any tobacco usage or history of. - Family history:: not pertinent. - Hospitalizations: : No recent hospitalization is reported. Screenin:30 Abuse screen: Denies threats or abuse. em 12:30 Nutritional screening: No deficits noted. Tuberculosis screening: No symptoms or risk em factors identified. Fall Risk None identified. Assessment: 12:30 General: Appears in no apparent distress. comfortable, Behavior is calm, cooperative, em appropriate for age, Denies fever. Pain: Denies pain. Neuro: Level of Consciousness is awake, alert, obeys commands, Oriented to person, place, time, situation, Appropriate for age. Cardiovascular: Capillary refill < 3 seconds Patient's skin is warm and dry. Respiratory: Airway is patent Respiratory effort is even, unlabored, Respiratory pattern is regular, symmetrical, Breath sounds are clear bilaterally. GI: Abdomen is flat, Patient currently denies nausea, vomiting. EENT: Throat is clear is pink Reports difficulty swallowing. Derm: Skin is intact, is healthy with good turgor, Skin is pink, warm \T\ dry. Musculoskeletal: Capillary refill < 3 seconds, Range of motion: intact in all extremities. Vital Signs: 11:36 BP 169 / 93; Pulse 103; Resp 16 S; Temp 98.2(TE); Pulse Ox 99% on R/A; Weight 72.57 kg ca1 (R); Height 5 ft. 4 in. (162.56 cm) (R); 11:36 Body Mass Index 27.46 (72.57 kg, 162.56 cm) ca1 ED Course: 11:19 Patient arrived in ED. ag5 11:19 Jeremiah Cedeno MD is Private Physician. ag5 11:39 Triage completed. ca1 11:40 Arm band placed on right wrist. EKG completed in triage. Results shown to MD. EKG ca1 completed in triage. Results shown to MD. 12:03 Yaw Fay MD is Attending Physician. rn 12:14 Juanpablo Diez RN is Primary Nurse. em 12:30 Patient has correct armband on for positive identification. Placed in gown. Bed in low em position. Call light in reach. 13:12 XRAY Chest (1 view) In Process Unspecified. EDMS 14:10 No provider procedures requiring assistance completed. em 14:10 Patient did not have IV access during this emergency room visit. em Administered Medications: No medications were administered Outcome: 13:05 Discharge ordered by . rn 14:10 Discharged to home ambulatory. em 14:10 Condition: good 14:10 Discharge instructions given to patient, Instructed on discharge instructions, follow up and referral plans. Demonstrated understanding of instructions, follow-up care. 14:11 Patient left the ED. em Addendum: 11/02/2019 13:37 Addendum: Other Pt notified of positive COVID result by Dr. Salazar. Pt reports he is s s doing better and has no questions at this time. Verbalizes understanding importance of returning to ER for any worsening of symptoms. Signatures: Dispatcher [employer] Juanpablo Gupta RN RN Yaw Roberts MD MD rn Smirch, Shelby, RN RN Yasmin Johnson RN RN [facility] Juan Rdz ag5
[2019-10-30 14:31] VITALS: BP 169/93; TEMP 98.2; O2SAT 99
--- NOTE | 2019-10-30 14:34 | RAD REPORT ---
EXAM DESCRIPTION: RAD - Chest Single View - 10/30/2019 1:12 pm CLINICAL HISTORY: COUGH Chest pain. COMPARISON: CHEST PA AND LAT 2 VIEW dated 05/03/2008 FINDINGS: Portable technique limits examination quality. The lungs are grossly clear. The heart is normal in size. No displaced fractures. IMPRESSION: No acute intrathoracic process suspected.
== END 2019-10-30 14:11 | disposition home or self-care (01) ==
LOC: ER 11:18
DX: U07.1 COVID-19 (principal); B34.9 Viral infection, unspecified; I10 Essential (primary) hypertension
CPT/HCPCS: 71045; 99283; U0001

== ENCOUNTER 2020-08-01 06:21 | Day surgery (SDC) | payer OTHER ==
[2020-08-01] MEDS ORDERED: Ringers Lactate 1,000 ML IV ONE (07:08)
[2020-08-01 07:12] LABS: Potassium 3.1 mmol/L (3.5-5.1)
[2020-08-01] MEDS ORDERED: MIDAZOLAM HCL 2 MG/2 ML INJ ONE (07:18)
[2020-08-01] MEDS ORDERED: propofoL 200 MG/20 ML VIAL IV ONE ×2 (07:18→08:21)
[2020-08-01] MEDS ORDERED: FENTANYL CITR 100 MCG/2 ML ONE (07:18)
[2020-08-01] MEDS ORDERED: LIDOCAINE 2% MPF 5 ML VIAL ONE ×2 (07:19→08:22)
[2020-08-01] MEDS ORDERED: LIDOCAINE 1% W/EPI 1:100,000 MDV 20 ML VIAL ONE (07:44)
[2020-08-01] MEDS ORDERED: NA CHLORIDE 0.9% 1,000 ML ONE (07:44)
[2020-08-01] MEDS ORDERED: KETOROLAC 30 MG/ML INJ ONE (08:32)
--- NOTE | 2020-08-01 09:30 | RAD REPORT ---
EXAM DESCRIPTION: US - Ultrasound Intraop - 08/01/2020 8:24 am CLINICAL HISTORY: OR CASE Pelvic pain COMPARISON: No comparisons FINDINGS: Intraoperative ultrasound was performed for hysteroscopy procedure. Uterus, endometrium ar e localized. Neither ovary is visualized, probably due to atrophy.
[2020-08-01 10:08] VITALS: TEMP 97.1
[2020-08-01 10:09] VITALS: BP 116/78; O2SAT 96
--- NOTE | 2020-08-01 12:22 | OP ---
Date of Procedure: 08/01/2020 Surgeon: Jannie Horton MD Preoperative Diagnoses: Postmenopausal bleeding and pelvic pain. Postoperative Diagnoses: Postmenopausal bleeding and pelvic pain and intrauterine adhesion, Asherman syndrome. Procedures Performed: Diagnostic hysteroscopy under ultrasound guidance, D and C, endometrial Pipell e used as well. Anesthesia: MAC plus paracervical block. Specimens: Endometrial curettings and Pipelle, retrieved sample from the endometrial cavity. Complications: No complications. Drains: No drains. Condition: Stable. Findings: Uterine cavity under ultrasound guidance was acutely anteflexed and was able to be cannula ije with the uterine sound. The top of the cervical canal that was occluded was visualized with the hysteroscope and then once the uterine sound was advanced to the tip of the endometrial cavity on the top. While visualizing under ultrasound, the cervix was dilated. The scope was used to visualize a nd the cavity appeared to be narrow. Endometrial sampling scant. So, Pipelle was used as a backup t o suction the cells that were loosened up. A 60-year-old with complaints as dictated above and was consented for endometrial cavity evaluation a nd sampling given her history of the uterine procedure. Procedure In Detail: She was counseled on bleeding, infection, and perforation of the uterus as risk s and then brought to the OR. No antibiotics were warranted, taken back to the OR placed in supine f ashion on the operating table. General anesthesia was given. Placed in a dorsal lithotomy position. Pelvic exam performed. Uterus anteflexed. Speculum placed to expose the cervix after prep x3 with Betadine was done in the vulva and vagina area. An Allis clamp was placed after injecting lidocaine at the anterior lip and then at 4 and 8 o'clock positions for paracervical block. Then, a SlimLine hysteroscope was advanced into the cervical canal and the open part of the canal was visualized. Thi s was stenotic. Once the scope was removed, the patroller was in the room and visualized the bladder and then the uterus and the cervical canal. Under visualization, the cervical dilator was ta jacey and opened up slightly to get the cervical canal cannulized. Then, the uterine sound was taken a nd then under ultrasound guidance passed to the top of the endometrial cavity. The dilators were use d to 16-Jordanian to dilate. Then, hysteroscope was placed. Cavity was visualized. There was only the right half of the cavity that was visualized. No significant intracavitary lesions. The endometriu m appeared to be unremarkable. Scope was removed. Endometrial curettings were performed with a 0 cu rette. The endometrial Pipelle was used to retrieve the loose cells if there was any other possible sample to be taken. The specimens were handed off for permanent pathology. Instruments were removed. Instrument, needle , and sponge counts were correct at the end of the case. No evidence of any perforation. The patien t given 50 mg of Toradol and recovered from anesthesia and taken to Day Surgery in a stable condition . She has a 1-week followup appointment with me to discuss the results and the findings. SKY/NIKKY Voice ID: [id number] Report ID: [id number]
== END 2020-08-01 09:05 | disposition home or self-care (01) ==
LOC: OR 06:21
PROVIDERS: ATTEND Obstetrics & Gynecology
PROC: 0UDB8ZX Extraction of Endometrium, Via Natural or Artificial Opening Endoscopic, Diagnostic (ICD-10-PCS; principal; 2020-08-01 07:30)
DX: N95.0 Postmenopausal bleeding (principal); R10.2 Pelvic and perineal pain; Z20.822 Contact with and (suspected) exposure to COVID-19
CPT/HCPCS: 80048; 36415; 88305; 76998; 58558; J2704 ×2; J2250; J3010; J7120; J7030; U0002

== ENCOUNTER 2021-06-05 06:22 | Day surgery (SDC) | payer OTHER ==
[2021-06-01 14:18] LABS: Urine Appearance CLEAR (Clear); Urine Bilirubin NEGATIVE (Negative); Urine Blood NEGATIVE (Negative); Urine Color YELLOW (Yellow); Urine Glucose NEGATIVE (Negative); Urine Protein NEGATIVE (Negative); Urine Specific Gravity 1.015 (1.005-1.030); Urine Urobilinogen 0.2 mg/dL (0.2-1.0)
[2021-06-01 14:20] LABS: Urine Microscopic Reflex NO UMIC
[2021-06-01 14:21] LABS: Absolute Lymphocytes (CBC) 1.8 K/uL (0.7-4.9); Hematocrit 38.8 % (36.0-45.0); Lymphocytes % 24.5 % (15.3-44.8); RBC Red Blood Cell Count 4.39 M/uL (3.86-4.86)
[2021-06-05] MEDS ORDERED: Ringers Lactate 1,000 ML IV ONE ×2 (06:32→07:21)
[2021-06-05] MEDS ORDERED: SCOPOLAMINE HYDROBROMIDE PATCH TD ONE ×2 (06:33→06:37)
[2021-06-05] MEDS ORDERED: CEFAZOLIN/SWI 2gm 2 GM/20 ML SYR ONE (06:33)
[2021-06-05] MEDS ORDERED: LIDOCAINE 2% MPF 5 ML VIAL ONE (07:14)
[2021-06-05] MEDS ORDERED: propofoL 200 MG/20 ML VIAL IV ONE (07:14)
[2021-06-05] MEDS ORDERED: ROCURONIUM 50 MG/5 ML VIAL IV ONE (07:14)
[2021-06-05] MEDS ORDERED: KETAMINE HCL 500 MG/5 ML VIAL ONE (07:14)
[2021-06-05] MEDS ORDERED: dexAMETHasone 10 MG/ML VIAL ONE (07:14)
[2021-06-05] MEDS ORDERED: ONDANSETRON 4 MG/2 ML VIAL ONE (07:15)
[2021-06-05] MEDS ORDERED: FENTANYL CITR 250 MCG/5 ML ONE (07:15)
[2021-06-05] MEDS ORDERED: MIDAZOLAM HCL 2 MG/2 ML INJ ONE (07:15)
[2021-06-05] MEDS ORDERED: BUPIVACAINE 0.25% PF 10 ML VIAL ONE (07:21)
[2021-06-05] MEDS: BUPIVACAINE 0.25% PF 10 ML VIAL ONE ×2 (08:18→08:58)
[2021-06-05] MEDS ORDERED: GLYCOPYRROLATE 0.2 MG/ML SYR ONE ×2 (08:33→08:35)
[2021-06-05] MEDS ORDERED: KETOROLAC 30 MG/ML INJ ONE (10:00)
[2021-06-05] MEDS ORDERED: HYDROCODONE/APAP 5/325 MG TAB PO PRN (10:34)
[2021-06-05] MEDS ORDERED: IBUPROFEN 200 MG TAB PO PRN (10:34)
--- NOTE | 2021-06-05 10:42 | P.BOP ---
Preoperative diagnosis: pelvic pain, PMB Postoperative diagnosis: same, uterovaginal prolapse stage 1 Primary procedure: TLH BSO washings, USLS colpopexy, cystoscopy Sap Specialist: Camelia Aguilera Estimated blood loss: min Specimen: uterus ovaries+ left tube togather&right tube seperate, pelvic washings Findings: ut+ovaries normal/adhesions R tube/ovary to R side wall/post broad lig Anesthesia: General Complications: None Transferred to: Recovery Room Condition: Good
[2021-06-05] MEDS ORDERED: HYDROCODONE/APAP 5/325 MG TAB ONE (11:47)
[2021-06-05 14:03] VITALS: TEMP 96; O2SAT 100
[2021-06-05 14:28] VITALS: BP 130/70
[2021-06-05] MEDS ORDERED: POTASSIUM CL SA 10 MEQ TAB PO SCH (21:00)
[2021-06-05] MEDS ORDERED: ATORVASTATIN 20 MG TAB PO SCH (21:00)
[2021-06-06] MEDS ORDERED: HOME MED 1 EA UNK (Omega-3/Dha/Epa/Fish Oil [Fish Oil 1,000 Mg Softgel] Capsule) PO SCH (09:00)
[2021-06-06] MEDS ORDERED: HOME MED 1 EA UNK (Venlafaxine Hcl [Venlafaxine Hcl Er] 150 MG Cap.Er.24h) PO SCH (09:00)
[2021-06-06] MEDS ORDERED: PANTOPRAZOLE 40MG TABLET PO SCH (09:00)
[2021-06-06] MEDS ORDERED: HOME MED 1 EA UNK (Multivitamin [Multivitamin] Tablet) PO SCH (09:00)
[2021-06-06] MEDS ORDERED: HOME MED 1 EA UNK (Losartan/Hydrochlorothiazide [Losartan-Hctz 100-25 Mg Tab] 1 EACH Table PO SCH (09:00)
--- NOTE | 2021-06-06 11:25 | OP ---
Date of Procedure: 06/05/2021 Surgeon: Jannie Horton MD Price Changer: Camelia Pepper. Preoperative Diagnoses: Pelvic pain, postmenopausal bleeding. Postoperative Diagnoses: Pelvic pain, postmenopausal bleeding, and uterovaginal prolapse stage 1. Procedures Performed: Total laparoscopic hysterectomy, bilateral salpingo-oophorectomy, pelvic washi ng, uterosacral ligament suspension, colpopexy, cystoscopy. Specimens: Uterus, ovaries, left tube together, and the right tube was separate in a pelvic washing. Anesthesia: General endotracheal. Complications: No complications. Drains: No drains. Condition: Stable. Estimated Blood Loss: Minimal. Findings: Uterus and ovaries were normal. Adhesions of the right tube and ovary to the right side o f the posterior broad ligament and right sidewall carefully taken down. No evidence of any injury to the ureters. Cystoscopy was performed and there were strong jets of urine from both sides. Uterosa cral suspension was performed with 3-0 Vicryl sutures. The vaginal cuff was closed with 2-0 Vicryl s utures at both angles and 2-0 V-Loc in 2 layers in the middle. Procedure In Detail: After informed consent was verified, the patient was taken back to the OR, plac ed in supine fashion on the operating table. 2 g of Ancef were given. SCDs were placed and the proc edure was started. Abdomen, vulva, vagina, and perineum were prepped and draped in a sterile fashion . Carrera was placed to drain the bladder and attached to retrograde filling. Medium VCare introduced into the uterus and fixed in place. On examination prior to placement of this, there was significant apical descent and so plan was to co nsider the vaginal cuff after closure and see if it needs a suspension and if it did, then I am going to do it. A 1 cm infraumbilical incision made with a scalpel using the open laparoscopy technique. Fascia was incised and tagged with 0 Vicryl sutures. Peritoneum was entered bluntly. S-retractors placed. Has son introduced after adequate insufflation. Upper abdominal surfaces and lower abdomen were all visu alized. No evidence of any abnormal lesions on the peritoneum or the omentum. Then, on visualizatio n of the pelvic cavity, uterus small. The ureters did not have any distortion in the past. Mesosalpinx on the left side was opened up lateral to the IP. Then, a window was made after dissecti ng the ureter at the pelvic brim between the ureter and the IP on the medial leaf of the broad ligame nt. Once this was done, the IP was taken down with the help of the LigaSure. Tube and ovary were di ssected medially and then peritoneum was taken down all the way to the VCare cup posteriorly. Anteri geovanna, the dissection was performed to raise the bladder flap all the way down to the opposite side. Vessels were isolated and taken down. Then on the opposite side, similar dissection was performed op ening up the peritoneum lateral to the IP; however, the tube and ovary were adherent to the right lat eral wall. The tube was dissected first and removed to expose the IP and ovary. Then, the dissectio n in the medial leaf of the broad ligament was performed to identify the ureter. Then, an incision w as made here to open up the area between the ureter and the ovary. The adherent ovary was sharply di ssected and then the pedicle was taken down. Ovary was left attached to the uterus with the utero-ov desiree ligament and dissection from the posterior peritoneum all the way to VCare cup. Broad ligament taken down after the round ligament was taken down and connected to the anterior peritoneum dissecti on and the bladder. Then, vessels were isolated, taken down. The bladder was dissected after openin g the vesicovaginal space inferiorly. After the vessels on the right side were taken down, the cardi nal ligaments were taken down whatever was left of them. Then, dissection on the left side was performed taking down all the connective tissue and vessels. T hen, circumferential colpotomy was performed with monopolar hook and specimen was detached and pulled out through the vagina. Both tubes were attached. Left ovary was attached to the right ovary. The uterosacral support on the right side was sufficient and definitely was unable to anterior adequa te attachment to the cervical apex or to the vaginal apex, so plan to perform a uterosacral here. Af ter thorough irrigation and suction were performed, the vaginal cuff was closed with 2 simple 0 Vicry l sutures at both angles and 2-0 V-Loc to continuously run the vaginal cuff in 2 layers. Once this w as closed adequately, then the uterosacral ligaments were identified and 0 Vicryl suture was taken th rough the uterosacral and attached to the cuff and suture tied down on both sides. Similar dissectio n was performed to reattach and resuspend the vagina. No evidence of any electrical, mechanical, or thermal injury to the ureters. Thorough irrigation and suction were performed. All pedicles were he mostatic. Pelvic washings were done at the very beginning of the case. The trocars were removed under direct vision. The patient was reversed from her Trendelenburg positi on. Gas desufflated. Fascia at the umbilicus was closed with the help of 0 Vicryl sutures and were tied to each other. Then, suprapubic simple 0 Vicryl suture for closure of the fascia. All skin inc isions closed with 3-0 chromic. Carrera was removed. Cystoscopy was performed with 30-degree lens normal saline and 17-Sudanese sheath. Strong jets of urine from both ureteric orifices. Rest of the bladder appeared to be unremarkable. Good visualization performed. Then, the bladder was drained. Vaginal canal was cleaned up. Instrument, needle, and sponge counts were correct at the end of the case. The patient was recovered from anesthesia and taken to PACU in stable condition. EBL was minimal. Discussed the findings wit h her and she will see me back in 1 week postop. SKY/NIKKY Voice ID: [id number] Report ID: [id number]
== END 2021-06-05 12:40 | disposition home or self-care (01) ==
LOC: OR 06:22
PROVIDERS: ATTEND Obstetrics & Gynecology
PROC: 0UT24ZZ Resection of Bilateral Ovaries, Percutaneous Endoscopic Approach (ICD-10-PCS; 2021-06-05)
PROC: 0UT74ZZ Resection of Bilateral Fallopian Tubes, Percutaneous Endoscopic Approach (ICD-10-PCS; 2021-06-05)
PROC: 0USG7ZZ Reposition Vagina, Via Natural or Artificial Opening (ICD-10-PCS; 2021-06-05)
PROC: 0UT94ZZ Resection of Uterus, Percutaneous Endoscopic Approach (ICD-10-PCS; principal; 2021-06-05 07:30)
DX: N80.0 Endometriosis of uterus (principal); D25.9 Leiomyoma of uterus, unspecified; R10.2 Pelvic and perineal pain; N81.2 Incomplete uterovaginal prolapse; Z20.822 Contact with and (suspected) exposure to COVID-19; N83.8 Other noninflammatory disorders of ovary, fallopian tube and broad ligament
CPT/HCPCS: 93005; 85025; 36415; 86900; 88108; 86850; 86901; 88305; 88307; 81003; 58571; 57283; U0003; J2704; J2250; J3010; J1100; J0690; J7120 ×2; J2405

== ENCOUNTER 2022-06-21 20:52 | Emergency (ER) | payer OTHER ==
--- OUTSIDE RECORDS SUMMARY | 2022-06-21 21:01 | XMS REPORT | Continuity of Care Document ---
:1960 Author Organization [facility] t Address [address] [place] [address] Dr. Lynch [address] [place] [id number] Care Team Providers Name Role Phone Unavailable Unavailable Unavailable Problems This patient has no known problems. Allergies, Adverse Reactions, Alerts This patient has no known allergies or adverse reactions. Medications This patient has no known medications. Procedures This patient has no known procedures. Encounters Start End Encounter Admission Attending Care Care Encounter Source Date/Time Date/Time Type Type Clinicians Facility Department ID 2019-12-22 2019-12-22 Outpatient [facility] 00:00:00 00:00:00 [id number] 3 Results This patient has no known results.
[2022-06-21 21:21] LABS: Absolute Lymphocytes (CBC) 2.7 K/uL (0.7-4.9); Hematocrit 36.8 % (36.0-45.0); Lymphocytes % 34.6 % (15.3-44.8); MCV 87.2 fL (80-100); MPV 6.7 fL (7.6-11.3); RBC Red Blood Cell Count 4.22 M/uL (3.86-4.86)
[2022-06-21 21:27] LABS: Protime INR 0.97
[2022-06-21 21:38] LABS: Albumin 3.8 g/dL (3.4-5.0); Bilirubin Total 0.3 mg/dL (0.2-1.0); Protein, Total 7.9 g/dL (6.4-8.2)
--- NOTE | 2022-06-21 21:56 | RAD REPORT ---
EXAM DESCRIPTION: CT - CTHCSPWOC - 06/21/2022 9:25 pm CLINICAL HISTORY: Fall off bar stool, hit had, LOC TRAUMA COMPARISON: Soft Tissue Neck W/Contr dated 07/31/2021; Brain W/Wo Cont dated 07/31/2021 TECHNIQUE: Axial thin cut noncontrast CT images of the head were obtained. Axial thin cut noncontrast CT images of the cervical spine were obtained. Multiplanar reformatted images were generated and reviewed. All CT scans are performed using dose optimization technique as appropriate and may include automated exposure control or mA/KV adjustment according to patient size. FINDINGS: CT HEAD WITHOUT CONTRAST: No acute hemorrhage, hydrocephalus or extra-axial collection is identified.No areas of brain edema or midline shift. The paranasal sinuses and mastoids are clear.The calvarium is intact. CT CERVICAL SPINE WITHOUT CONTRAST: No fracture or subluxation.No prevertebral soft tissues swelling is identified. Multilevel endplate, facet, and uncovertebral joint degenerative changes contributing to and degrees of neural foraminal n arrowing, up to moderate bilaterally at C4-5. Atlanto odontoid articulation is well maintained with m ild degenerative pannus formation. Bilateral thyroid nodules, hyperdense on the right, measuring 1.5 centimeter, and hypodense on the le ft, measuring 1.4 centimeter. IMPRESSION: No acute traumatic intracranial or cervical spine findings. Incidentally noted bilateral thyroid nodules, which can be further evaluated on dedicated thyroid ult rasound. Degenerative cervical spine changes as above.
[2022-06-21] MEDS ORDERED: ACETAMINOPHEN 500 MG TAB ONE ×2 (22:34→22:37)
--- NOTE | 2022-06-21 22:46 | EDPHYS ---
Physician Documentation [facility] Name: Leonarda Hopkins Age: 62 yrs Sex: Female : 1960 Arrival Date: 06/21/2022 Time: 20:57 Bed 4 Private MD: ED Physician Francoise De La Cruz HPI: 06/21 22:36 This 62 yrs old Female presents to ER via EMS with complaints of head injury. sd2 22:36 62-year-old female presents via EMS with chief complaint of head injury. They report sd2 they were at a bar this evening when she fell backwards off the barstool and impacted her head on the countertop and then on the concrete floor. Her at bedside reports that she had loss of consciousness for approximately 30 minutes prior to awakening. She had had some beers prior to that as well. Patient complains of head pain but denies any neck, back pain or any other areas of discomfort at this time.. Historical: - Allergies: 21:02 No Known Allergies; bb - Immunization history:: pt unable to answer. - Social history:: Smoking status: Patient denies any tobacco usage or history of. Patient uses alcohol, patient/guardian reports recent binge of alcohol consumption. ROS: 22:42 Constitutional: Negative for fever, chills, and weight loss, Eyes: Negative for injury, sd2 pain, redness, and discharge, Cardiovascular: Negative for chest pain, palpitations, and edema, Respiratory: Negative for shortness of breath, cough, wheezing. Abdomen/GI: Negative for abdominal pain, nausea, vomiting, diarrhea. Back: Negative for injury and pain, MS/Extremity: Negative for injury and deformity, Skin: Negative for injury, rash, and discoloration, Neuro: Positive for headache, Negative for numbness and tingling. Exam: 22:42 Constitutional: This is a well developed, well nourished patient who is awake, alert, sd2 and in no acute distress. Head/Face: Normocephalic, atraumatic. Eyes: EOMI, normal conjunctiva bilaterally Chest/axilla: Normal chest wall appearance and motion. Nontender with no deformity. Cardiovascular: Regular rate and rhythm with a normal S1 and S2. No gallops, murmurs, or rubs. 2+ distal pulses. Respiratory: Lungs have equal breath sounds bilaterally, clear to auscultation and percussion. No rales, rhonchi or wheezes noted. No increased work of breathing, no retractions or nasal flaring. Abdomen/GI: Soft, non-tender, with normal bowel sounds. No guarding or rebound. No evidence of tenderness throughout. Skin: Warm, dry with normal turgor. Normal color with no rashes, no lesions, and no evidence of cellulitis. MS/ Extremity: Pulses equal, no cyanosis. Neurovascular intact. Full, normal range of motion. Ambulatory without difficulty. Neuro: Awake and alert, GCS 14, oriented to person, place, but not time. Cranial nerves II-XII grossly intact. Motor strength 5/5 in all extremities. Sensory grossly intact. Cerebellar exam normal. Normal gait. Psych: Awake, alert, with orientation to person, place only. Behavior, mood, and affect are within normal limits. Vital Signs: 21:01 BP 140 / 63; Pulse 72; Resp 16 S; Temp 98.4(O); Pulse Ox 100% on R/A; Weight 68.04 kg bb (R); Height 5 ft. 4 in. (162.56 cm) (R); 22:04 BP 153 / 90; Pulse 74; Resp 19 S; Pulse Ox 100% on R/A; as6 22:06 BP 140 / 74; Pulse 72; Resp 12; Pulse Ox 100% on R/A; tw5 21:01 Body Mass Index 25.75 (68.04 kg, 162.56 cm) bb MDM: 20:57 Patient medically screened. sd2 22:43 Differential diagnosis: intra-abdominal injury, closed head injury, cardiac contusion, sd2 extremity fracture, C spine fracture, T spine fracture, L spine fracture, among others. Data reviewed: vital signs, nurses notes, EMS record, lab test result(s), radiologic studies. Consideration of Admission/Observation Escalation of care including admission/observation considered. I considered the following discharge prescriptions or medication management in the emergency department Medications were administered in the Emergency Department. See MAR. Independent interpretation of the following test(s) in the Emergency Department CT Scan: My interpretation is no bleed. Historians other than the Patient: EMS: provides report. Spouse/Significant Other: provides HPI. Counseling: I had a detailed discussion with the patient and/or guardian regarding: the historical points, exam findings, and any diagnostic results supporting the discharge/admit diagnosis, lab results, radiology results, the need for outpatient follow up, to return to the emergency department if symptoms worsen or persist or if there are any questions or concerns that arise at home. Medication response: improved pain. Response to treatment: the patient's symptoms have mildly improved after treatment. ED course: Discussed findings with the patient and her at bedside as well as concussion precautions and need for follow-up outpatient with her PCP. She is comfortable with plan for discharge and outpatient follow-up and verbalizes understanding of strict return precautions at this time.. 06/21 21:10 Order name: CBC with Diff; Complete Time: 21:46 sd2 06/21 21:10 Order name: CMP; Complete Time: :46 sd2 06/21 21:10 Order name: CT Head C Spine sd2 06/21 21:10 Order name: PT-INR; Complete Time: :46 sd2 06/21 21:10 Order name: Ptt, Activated; Complete Time: :46 sd2 06/21 21:10 Order name: Ethanol; Complete Time: :46 sd2 Administered Medications: 22:43 Drug: Tylenol 1000 mg Route: PO; tw5 23:04 Follow up: Response: No adverse reaction tw5 Disposition Summary: 06/21/22 22:45 Discharge Ordered Location: Home sd2 Problem: new sd2 Symptoms: have improved sd2 Condition: Stable sd2 Diagnosis - Concussion with loss of consciousness of 30 minutes or less sd2 - Alcohol use, unspecified sd2 Followup: sd2 - With: Private Physician - When: 2 - 3 days - Reason: Recheck today's complaints, Continuance of care, Re-evaluation by your physician Discharge Instructions: - Discharge Summary Sheet sd2 - Concussion, Adult sd2 - Head Injury, Adult sd2 Forms: - Medication Reconciliation Form sd2 - Thank You Letter sd2 - Antibiotic Education sd2 - Prescription Opioid Use sd2 Signatures: Dispatcher [employer] EDMS Lucie Mondragon RN Lydia Tompkins tw5 Francoise De La Cruz MD MD sd2 Corrections: (The following items were deleted from the chart) 22:42 22:36 62-year-old female presents via EMS with chief complaint of head injury. They sd2 report they were at a bar this evening when she fell backwards off the barstool and impacted her head on the countertop and then on the concrete floor. Her at bedside reports that she had loss of consciousness for approximately 30 minutes prior to awakening. She had had some beers prior to that as well.. sd2
--- NOTE | 2022-06-21 22:46 | ER ---
Nurse's Notes [facility] Name: Leonarda Hopkins Age: 62 yrs Sex: Female : 1960 Arrival Date: 06/21/2022 Time: 20:57 Bed 4 Private MD: Diagnosis: Concussion with loss of consciousness of 30 minutes or less;Alcohol use, unspecified Presentation: 06/21 21:01 Chief complaint: EMS states: pt was at bar drinking and fell off of barstool hitting bb her head causing her to pass out. Coronavirus screen: At this time, the client does not indicate any symptoms associated with coronavirus-19. Ebola Screen: No symptoms or risks identified at this time. Initial Sepsis Screen: Does the patient meet any 2 criteria? No. Patient's initial sepsis screen is negative. Does the patient have a suspected source of infection? No. Patient's initial sepsis screen is negative. Risk Assessment: Do you want to hurt yourself or someone else? Patient reports no desire to harm self or others. Onset of symptoms was June 21, 2022. 21:01 Method Of Arrival: EMS: [facility] bb 21:01 Acuity: MATTHEW 2 bb Historical: - Allergies: 21:02 No Known Allergies; bb - Immunization history:: pt unable to answer. - Social history:: Smoking status: Patient denies any tobacco usage or history of. Patient uses alcohol, patient/guardian reports recent binge of alcohol consumption. Screenin:04 [facility] ED Fall Risk Assessment (Adult) Intoxicated or Sedated Yes (3 pts) Score/Fall as6 Risk Level 3 or more points = High Risk. Abuse screen: Denies threats or abuse. Denies injuries from another. Nutritional screening: No deficits noted. Tuberculosis screening: No symptoms or risk factors identified. Assessment: 21:25 General: Appears in no apparent distress. Behavior is calm, cooperative. General: as6 Smells of alcohol. Pain: Complains of pain in head. Neuro: Reports headache. Neuro: Level of Consciousness is awake, alert, obeys commands. Respiratory: Respiratory effort is even, unlabored. 22:06 General: at the bedside states" The chair slipped out from under her. Her head tw5 hit a wall first, then she bounced off of that and then hit the floor. It wasn't because she was unk it was because the chair slipped out from under her. I WANT THAT UNDERSTOOD.". 22:06 General: Patient states "I have a bit of a headache.". Neuro: Level of Consciousness is tw5 awake, alert, obeys commands. Vital Signs: 21:01 BP 140 / 63; Pulse 72; Resp 16 S; Temp 98.4(O); Pulse Ox 100% on R/A; Weight 68.04 kg bb (R); Height 5 ft. 4 in. (162.56 cm) (R); 22:04 BP 153 / 90; Pulse 74; Resp 19 S; Pulse Ox 100% on R/A; as6 22:06 BP 140 / 74; Pulse 72; Resp 12; Pulse Ox 100% on R/A; tw5 21:01 Body Mass Index 25.75 (68.04 kg, 162.56 cm) bb ED Course: 20:57 Patient arrived in ED. ds4 20:57 Francoise De La Cruz MD is Attending Physician. sd2 21:02 Triage completed. bb 21:02 Arm band placed on Patient placed in an exam room, on a stretcher, on pulse oximetry. bb Family accompanied patient. 21:08 Inserted saline lock: 20 gauge in left antecubital area, using aseptic technique. Blood zm collected. 21:11 Lydia Olguin is Primary Nurse. tw5 21:16 Ptt, Activated Sent. zm 21:16 Ethanol Sent. zm 21:16 PT-INR Sent. zm 21:16 CMP Sent. zm 21:16 CBC with Diff Sent. zm 21:27 CT Head C Spine In Process Unspecified. EDMS 22:04 Placed in gown. Bed in low position. Call light in reach. Side rails up X2. Adult w/ as6 patient. Client placed on continuous cardiac and pulse oximetry monitoring. NIBP monitoring applied. Warm blanket given. 22:06 Patient has a C-collar in place. tw5 23:04 No provider procedures requiring assistance completed. IV discontinued, intact, tw5 bleeding controlled, No redness/swelling at site. Pressure dressing applied. Administered Medications: 22:43 Drug: Tylenol 1000 mg Route: PO; tw5 23:04 Follow up: Response: No adverse reaction tw5 Medication: 22:04 VIS not applicable for this client. as6 Outcome: 22:45 Discharge ordered by . sd2 23:05 Discharged to home via wheelchair, with family. tw5 23:05 Condition: stable 23:05 Discharge instructions given to patient, family, Instructed on discharge instructions, follow up and referral plans. Demonstrated understanding of instructions, follow-up care. 23:05 Patient left the ED. tw5 Signatures: Dispatcher [employer] EDLucie Lira RN RN bb Swanson, Donovan ds4 Lydia Olguin tw5 Ajith Ramirez RN RN as6 Kavitha Wilkins Stephanie, MD MD sd2
[2022-06-21 23:31] VITALS: TEMP 98.4; O2SAT 100
[2022-06-21 23:33] VITALS: BP 140/74
== END 2022-06-21 23:05 | disposition home or self-care (01) ==
LOC: ER 20:52
DX: S06.0X1A Concussion with loss of consciousness of 30 minutes or less, initial encounter (principal); F10.90 Alcohol use, unspecified, uncomplicated
CPT/HCPCS: 85025; 36415; 85610; 85730; 80053; 70450; 72125; 99284; G0480

== ENCOUNTER → 2023-05-14 | Day surgery (SDC) | payer OTHER ==
--- NOTE | 2023-05-14 13:23 | RAD REPORT ---
EXAM DESCRIPTION: - FINE NEEDLE ASPIRATION 2ND LES - 05/14/2023 10:59 am CLINICAL HISTORY: 2ND LES FINDINGS: Preoperative diagnosis: Left thyroid nodules. Post operative diagnosis: Same. Conscious Sedation: None Fluoroscopy time: None Contrast used: None Estimated blood loss: Minimal Specimens:As below Upon initial scanning, the dominant mid to lower pole mixed cystic and solid 2.6 cm nodule is visuali zed, as well as the deeper midpole 1.8 cm nodule which also appears solid. These 2 nodules deserve ad ditional evaluation by ultrasound-guided FNA by ACR TI RADS criteria. I attempted to contact the [facility] physician's office to discuss this, however I was not successful. Upon discussion with the patie nt, she preferred having both nodules sampled. Informed consent was obtained following risk and benefit discussion with the patient. Time-out proced ure was performed. The anterior neck was prepped and draped in the usual sterile fashion. 1% lidocain e was infiltrated into the subcutaneous tissues for local anesthesia. Real time ultrasound scanning o f the left thyroid lobe demonstrated the 2 nodules in question. Under ultrasound guidance, and initia lly targeting the deeply situated 1.8 cm hypoechoic nodule, using multiple 25 gauge needles, 5 FNA bi opsy/cytology specimens were obtained of this lesion and sent to pathology for evaluation. Attention was then directed to the mid to lower pole mixed cystic and solid 2.6 cm nodule, again utilizing mult iple 25 gauge needles, 5 FNA biopsy/cytology specimens were obtained and sent to pathology. The patie nt tolerated the procedure well. There were no complications. IMPRESSION: Successful ultrasound-guided FNA biopsy/cytology of 2 left thyroid nodules as above.
--- NOTE | 2023-05-14 13:23 | RAD REPORT ---
EXAM DESCRIPTION: US - Guided FNA Non Breast - 05/14/2023 10:22 am CLINICAL HISTORY: E04.2 COMPARISON: Ultrasound Intraop dated 08/01/2020 FINDINGS: Preoperative diagnosis: Left thyroid nodules. Post operative diagnosis: Same. Conscious Sedation: None Fluoroscopy time: None Contrast used: None Estimated blood loss: Minimal Specimens:As below Upon initial scanning, the dominant mid to lower pole mixed cystic and solid 2.6 cm nodule is visuali zed, as well as the deeper midpole 1.8 cm nodule which also appears solid. These 2 nodules deserve ad ditional evaluation by ultrasound-guided FNA by ACR TI RADS criteria. I attempted to contact the [facility] physician's office to discuss this, however I was not successful. Upon discussion with the patie nt, she preferred having both nodules sampled. Informed consent was obtained following risk and benefit discussion with the patient. Time-out proced ure was performed. The anterior neck was prepped and draped in the usual sterile fashion. 1% lidocain e was infiltrated into the subcutaneous tissues for local anesthesia. Real time ultrasound scanning o f the left thyroid lobe demonstrated the 2 nodules in question. Under ultrasound guidance, and initia lly targeting the deeply situated 1.8 cm hypoechoic nodule, using multiple 25 gauge needles, 5 FNA bi opsy/cytology specimens were obtained of this lesion and sent to pathology for evaluation. Attention was then directed to the mid to lower pole mixed cystic and solid 2.6 cm nodule, again utilizing mult iple 25 gauge needles, 5 FNA biopsy/cytology specimens were obtained and sent to pathology. The patie nt tolerated the procedure well. There were no complications. IMPRESSION: Successful ultrasound-guided FNA biopsy/cytology of 2 left thyroid nodules as above.
== END ==
LOC: FNA 08:00
PROVIDERS: ATTEND Internal Medicine Endocrinology, Diabetes & Metabolism
DX: E04.2 Nontoxic multinodular goiter (principal)
CPT/HCPCS: 10006; 88304; 88305

== ENCOUNTER 2023-08-20 07:42 | Emergency (ER) | payer OTHER ==
--- OUTSIDE RECORDS SUMMARY | 2023-08-20 07:44 | XMS REPORT | Continuity of Care Document ---
Author Name Unknown Address [address] [place] [address] [employer] Address [address] [place] [address] [address] [place] [address] Care Team Providers Care Lock Stitch Channeler Name Role Phone [email or web address] Attending Clinician Unavaila ble [email or web address] Admitting Clinician Unavaila ble Payers Payer Name Policy Type Policy Number Effective Date Expirati on Date Source MARIA M (MARIA M) [id number] 2012 00:00:00 2024 00:00:00 Encounters Start Date/Time End Date/Time Encounter Type Admission Type Attending Clinicians Care Facility Care Department Encounter ID Source 2023-06-24 00:00:00 2023-06-24 00:00:00 Outpatient [email or web address] diyala_S PRIV PRIV [id number] [facility] 2023-05-27 00:00:00 2023-05-27 00:00:00 Outpatient [email or web address] diyala_S PRIV PRIV [id number] [facility] 2023-04-29 00:00:00 2023-04-29 00:00:00 Outpatient [email or web address] diyala_S PRIV PRIV [id number] [facility] 2023-04-03 00:00:00 2023-04-03 00:00:00 Outpatient [email or web address] diyala_S PRIV PRIV [id number] [facility] 2023-02-06 00:00:00 2023-02-06 00:00:00 Outpatient [email or web address] diyala_S PRIV PRIV [id number] [facility] 2023-02-06 00:00:00 2023-02-06 00:00:00 Outpatient [email or web address]_Ka aryaenzoJada [facility] [id number] [facility] 2019-12-22 00:00:00 2019-12-22 00:00:00 Outpatient [facility] VICKYFEQASIM [id number] [facility]
--- NOTE | 2023-08-20 08:12 | EDPHYS ---
Physician Documentation [facility] Name: Leonarda Hopkins Age: 63 yrs Sex: Female : 1960 Arrival Date: 08/20/2023 Time: 07:42 Bed 18 Private MD: ED Physician Antione Rosario HPI: 08/19 08:12 This 63 yrs old Female presents to ER via Ambulatory with complaints of Low ec2 Back Pain, Leg Pain - right. 08:12 Patient arrives today for evaluation of low back pain. Patient complaining of ec2 right-sided back pain radiating to the right leg. Patient reports no falls injuries or trauma. Patient reports history of static in the for the same. Patient reports some paresthesias as well in the right lower extremity. Historical: - Allergies: 08:06 No Known Allergies; ap3 - PMHx: 08:06 Gastric Reflux; Hypercholesterolemia; Hypertension; ap3 - PSHx: 08:06 hysterectomy; ap3 - Immunization history:: Client reports receiving the 2nd dose of the Covid vaccine. - Infectious Disease History:: Denies. - Social history:: Smoking status: Patient denies any tobacco usage or history of. ROS: 08:12 Constitutional: as per hpi ec2 Exam: 08:12 Constitutional: GEN: NAD Head: atraumatic Eyes: EOMI Ears: External ears are ec2 normal. CV: regular rate LUNGS: no respiratory distress ABD: non-distended SKIN: no evidence of rashes MSK: no evidence of trauma, positive right sided straight leg raise test. No C/T/L-spine TTP NEURO: moves all extremities equally Vital Signs: 08:04 BP 158 / 89; Pulse 87; Resp 17; Temp 97.7; Pulse Ox 98% ; Weight 69.85 kg; Height 5 ft. ap3 4 in. ; Pain 9/10; 08:04 Body Mass Index 26.43 (69.85 kg, 162.56 cm) ap3 08:04 Pain Scale: Adult ap3 MDM: 07:57 Patient medically screened. ec2 08:12 Data reviewed: vital signs. ED course: Patient arrives today for right-sided back pain ec2 rating to the leg. Examination consistent with sciatica. Will give the patient medications for symptoms and discharged home. Do not feel CT imaging or MR imaging would be beneficial in the setting given the patient's known history as well as lack of concerning features to her story. Will discharge home with medications. Return precautions given.. Administered Medications: 08:22 Drug: Lidoderm Topical Patch 5 % (700 mg/patch) 1 patches Topical once; leave on for 12 kc6 hours; cover most painful area; may cut into smaller pieces Route: Topical; Site: affected area; 08:22 Drug: predniSONE PO 40 mg PO once Route: PO; kc6 08:23 Drug: Diazepam PO 5 mg PO once Route: PO; kc6 08:23 Drug: Ketorolac IM 30 mg IM once Route: IM; Site: right deltoid; kc6 Disposition Summary: 08/20/23 08:12 Discharge Ordered Notes: Location: Home ec2 Condition: Stable ec2 Diagnosis - Low back pain ec2 - Sciatica, right side ec2 Followup: ec2 - With: Private Physician - When: - Reason: Re-evaluation by your physician Discharge Instructions: - Discharge Summary Sheet ec2 - Acute Back Pain, Adult ec2 Forms: - Medication Reconciliation Form ec2 - Thank You Letter ec2 - Antibiotic Education ec2 - Prescription Opioid Use ec2 - Patient Portal Instructions ec2 - Leadership Thank You Letter ec2 Prescriptions: - Valium 5 mg Oral Tablet - take 1 tablet ORAL route every 8 hours As needed; 20 tablet; Refills: 0, ec2 Product Selection Permitted - Prednisone 20 mg Oral Tablet - take 2 tablets ORAL route once daily for 5 days; 10 tablet; Refills: 0, Product ec2 Selection Permitted Signatures: Malia Price RN RN ap3 Madonna Aguilar RN RN kc6 Antione Rosario MD MD ec2
--- NOTE | 2023-08-20 08:12 | ER ---
Nurse's Notes [facility] Name: Leonarda Hopkins Age: 63 yrs Sex: Female : 1960 Arrival Date: 08/20/2023 Time: 07:42 Bed 18 Private MD: Diagnosis: Low back pain;Sciatica, right side Presentation: 08/19 08:04 Chief complaint: Patient states: she has been having right low back pain and right leg ap3 pain that started over the weekend. patient currently rates her pain as a 9/10 on the pain scale. Coronavirus screen: At this time, the client does not indicate any symptoms associated with coronavirus-19. Ebola Screen: No symptoms or risks identified at this time. Initial Sepsis Screen: Does the patient meet any 2 criteria? No. Patient's initial sepsis screen is negative. Does the patient have a suspected source of infection? No. Patient's initial sepsis screen is negative. Risk Assessment: Do you want to hurt yourself or someone else? Patient reports no desire to harm self or others. Onset of symptoms was August 16, 2023. 08:04 Method Of Arrival: Ambulatory ap3 08:04 Acuity: MATTHEW 4 ap3 Triage Assessment: 08:06 General: Appears uncomfortable, Behavior is calm, cooperative, appropriate for age. ap3 Pain: Complains of pain in back and right leg. Neuro: Level of Consciousness is awake, alert, obeys commands, Oriented to person, place, time, situation. Cardiovascular: Patient's skin is warm and dry. Respiratory: Airway is patent Respiratory effort is even, unlabored, Respiratory pattern is regular, symmetrical. Historical: - Allergies: 08:06 No Known Allergies; ap3 - PMHx: 08:06 Gastric Reflux; Hypercholesterolemia; Hypertension; ap3 - PSHx: 08:06 hysterectomy; ap3 - Immunization history:: Client reports receiving the 2nd dose of the Covid vaccine. - Infectious Disease History:: Denies. - Social history:: Smoking status: Patient denies any tobacco usage or history of. Screenin:04 [facility] ED Fall Risk Assessment (Adult) History of falling in the last 3 months, kc6 including since admission No falls in past 3 months (0 pts) Confusion or Disorientation No (0 pts) Intoxicated or Sedated No (0 pts) Impaired Gait No (0 pts) Mobility Assist Device Used No (0 pt) Altered Elimination No (0 pt) Score/Fall Risk Level 0 - 2 = Low Risk. Abuse screen: Denies threats or abuse. Denies injuries from another. Nutritional screening: No deficits noted. Tuberculosis screening: No symptoms or risk factors identified. Assessment: 08:23 General: Appears in no apparent distress. comfortable, well groomed, well developed, kc6 Behavior is calm, cooperative, appropriate for age. Pain: Complains of pain in right leg and back. Neuro: Level of Consciousness is awake, alert, obeys commands, Oriented to person, place, time, situation, Appropriate for age. Cardiovascular: Capillary refill < 3 seconds. Respiratory: Airway is patent Trachea midline Respiratory effort is even, unlabored, Respiratory pattern is regular, symmetrical. GI: No signs and/or symptoms were reported involving the gastrointestinal system. : No signs and/or symptoms were reported regarding the genitourinary system. EENT: No signs and/or symptoms were reported regarding the EENT system. Derm: No signs and/or symptoms reported regarding the dermatologic system. Skin is intact, is healthy with good turgor, Skin is pink, warm \T\ dry. Musculoskeletal: No signs and/or symptoms reported regarding the musculoskeletal system. Circulation, motion, and sensation intact. Capillary refill < 3 seconds, Range of motion: intact in all extremities. Vital Signs: 08:04 BP 158 / 89; Pulse 87; Resp 17; Temp 97.7; Pulse Ox 98% ; Weight 69.85 kg; Height 5 ft. ap3 4 in. ; Pain 9/10; 08:04 Body Mass Index 26.43 (69.85 kg, 162.56 cm) ap3 08:04 Pain Scale: Adult ap3 ED Course: 07:45 Patient arrived in ED. im 07:52 Antione Rosario MD is Attending Physician. ec2 07:59 Madonna Aguilar, TOMASA is Primary Nurse. kc6 08:05 Patient has correct armband on for positive identification. Bed in low position. Call kc6 light in reach. Side rails up X 1. Adult w/ patient. Client placed on continuous cardiac and pulse oximetry monitoring. NIBP monitoring applied. 08:06 Triage completed. ap3 08:07 Arm band placed on right wrist. ap3 08:23 No provider procedures requiring assistance completed. kc6 08:24 Patient did not have IV access during this emergency room visit. kc6 Administered Medications: 08:22 Drug: Lidoderm Topical Patch 5 % (700 mg/patch) 1 patches Topical once; leave on for 12 kc6 hours; cover most painful area; may cut into smaller pieces Route: Topical; Site: affected area; 08:22 Drug: predniSONE PO 40 mg PO once Route: PO; kc6 08:23 Drug: Diazepam PO 5 mg PO once Route: PO; kc6 08:23 Drug: Ketorolac IM 30 mg IM once Route: IM; Site: right deltoid; kc6 Medication: 08:24 VIS not applicable for this client. kc6 Outcome: 08:12 Discharge ordered by . ec2 08:24 Discharged to home ambulatory, with significant other, kc6 08:24 Condition: good 08:24 Discharge instructions given to patient, Instructed on discharge instructions, follow up and referral plans. medication usage, Demonstrated understanding of instructions, follow-up care, medications, Prescriptions given X 2, 08:24 Patient left the ED. kc6 Signatures: Malia Price, RN RN alina3 Madonna Aguilar RN RN kc6 Livia Villa Edwin, MD MD ec2
[2023-08-20] MEDS ORDERED: KETOROLAC 30 MG/ML INJ ONE (08:16)
[2023-08-20] MEDS ORDERED: predniSONE 20 MG TAB ONE (08:16)
[2023-08-20] MEDS ORDERED: LIDOCAINE 4% PATCH ONE (08:16)
[2023-08-20] MEDS ORDERED: DIAZEPAM 5 MG TABLET ONE (08:16)
[2023-08-20 15:38] VITALS: BP 158/89; TEMP 97.7; O2SAT 98
== END 2023-08-20 08:24 | disposition home or self-care (01) ==
LOC: ER 07:42
DX: M54.31 Sciatica, right side (principal)
CPT/HCPCS: J7512; J2001

== ENCOUNTER 2025-02-11 09:56 | Emergency (ER) | payer OTHER ==
--- OUTSIDE RECORDS SUMMARY | 2025-02-11 09:59 | XMS REPORT | Continuity of Care Document ---
Author Name Unknown Address [address] [place] [address] [place] [address] [address] [place] [address] Care Team Providers Care Cafeteria Counter Attendant Name Role Phone [email or web address] Attending Clinician Vane franco [email or web address] Admitting Clinician Alexia ble Payers Payer Name Policy Type Policy Number Effective Date Expirati on Date Source () [id number] 2012 00:00:00 2024 00:00:00 Problems Condition Name Condition Details Condition Category Status Onset Date Resolution Date Last Treatment Date Treating Clinician Comments Source Increased frequency of urination Increased Frequency of Urination Problem Active 2023-05 0-23 00:00: 00 [facility] Menopausal symptom Menopausal Symptom Problem Active 2023-05 0-16 00:00: 00 [facility] Elevated blood-pres sure reading without diagnosis of hypertensi on Elevated Blood-pres sure Reading without Diagnosis of Hypertensi on Problem Active 2023-05 0-16 00:00: 00 [facility] Hyperchole sterolemia Hyperchole sterolemia Problem Active 9-21 00:00: 00 [facility] Anxiety Anxiety Problem Active 9-21 00:00: 00 [facility] Heartburn Heartburn Problem Active 9-21 00:00: 00 [facility] Pelvic and perineal pain Pelvic and Perineal Pain Problem Active 5-02 00:00: 00 [facility] Incomplete uterovagin al prolapse Incomplete Uterovagin al Prolapse Problem Active 2-16 00:00: 00 [facility] Screening mammograph y Screening Mammograph y Problem Active 9- 00:00: 00 [facility] Screening for malignant neoplasm of colon Screening for Malignant Neoplasm of Colon Problem Active 01-31 00:00: 00 [facility] Gynecologi lteitia examinatio n abnormal Gynecologi letitia Examinatio n Abnormal Problem Active 01-31 00:00: 00 [facility] Moderate recurrent major depression Moderate Recurrent Major Depression Problem Active 5-05 00:00: 00 [facility] Postmenopa usal bleeding Postmenopa usal Bleeding Problem Active 1-28 00:00: 00 [facility] Constipati on Constipati on Problem Active 2019-05 2-17 00:00: 00 [facility] Overactive urinary bladder Overactive Urinary Bladder Problem Active 2019-05 0-21 00:00: 00 [facility] Anxiety disorder Anxiety Disorder Problem Active 01-11 00:00: 00 [facility] Essential hypertensi on Essential Hypertensi on Problem Active 01-11 00:00: 00 [facility] Atrophic vaginitis Atrophic Vaginitis Problem Active 01-11 00:00: 00 [facility] Urgent desire to urinate Urgent Desire to Urinate Problem Active 01-11 00:00: 00 [facility] Family history of malignant neoplasm of ovary Family History of Malignant Neoplasm of Ovary Problem Active 01-11 00:00: 00 [facility] Menopause present Menopause Present Problem Active 01-11 00:00: 00 [facility] Social History Smoking Status Start Date Stop Date Source Former Smoker [facility] Medications Ordered Medication Name Filled Medication Name Start Date Stop Date Current Medication? Ordering Clinician Indication Dosage Frequency Signature (SIG) Comments Components Source Effexor XR 150 mg capsule,ext ended release Take 1 capsule every day by oral route for 90 days. Effexor XR 150 mg capsule,ext ended release Take 1 capsule every day by oral route for 90 days. No 1capsul e(s) Q1D Effexor XR 150 mg capsule,ex tended release Take 1 capsule every day by oral route for 90 days. [facility] estradiol 0.01% (0.1 mg/gram) vaginal cream (0.5gm) as directed with applicator; three times a week; 30 days estradiol 0.01% (0.1 mg/gram) vaginal cream (0.5gm) as directed with applicator; three times a week; 30 days No estradiol 0.01% (0.1 mg/gram) vaginal cream (0.5gm) as directed with applicator ; three times a week; 30 days [facility] nitrofurant oin monohydrate /macrocryst als 100 mg capsule Take 1 capsule every 12 hours by oral route for 7 days. nitrofurant oin monohydrate /macrocryst als 100 mg capsule Take 1 capsule every 12 hours by oral route for 7 days. No 1capsul e(s) Q12H nitrofuran toin monohydrat e/macrocry stals 100 mg capsule Take 1 capsule every 12 hours by oral route for 7 days. [facility] Vital Signs Vital Name Observation Time Observation Value Comments S ource BP Systolic 2024-02-25 00:00:00 128 mm[Hg] [facility] Body Weight 2024-02-25 00:00:00 150.6 [lb_av] [facility] Height 2024-02-25 00:00:00 64 [in_i] [facility] BP Diastolic 2024-02-25 00:00:00 72 mm[Hg] [facility] BMI (Body Mass Index) 2024-02-25 00:00:00 25[facility]9 [facility] 2024-02-18 00:00:00 64 [in_i] [facility] Body Weight 2024-02-18 00:00:00 150.6 [lb_av] [facility] BP Diastolic 2024-02-18 00:00:00 90 mm[Hg] [facility] BP Systolic 2024-02-18 00:00:00 145 mm[Hg] [facility] BMI (Body Mass Index) 2024-02-18 00:00:00 25.9 kg/m2 [facility] Procedures Procedure Date / Time Performed Performing Clinicia n Source MAMMO, screening, digital, bilateral 2024-02-18 00:00:00 [facility] Laparoscopic Total Hysterectomy 2021-06-05 00:00:00 [facility] Hysteroscopy 2020-08-01 00:00:00 [facility] Back / Spine Surgery [facility] Appendectomy [facility] Encounters Start Date/Time End Date/Time Encounter Type Admission Type Attending Clinicians Care Facility Care Department Encounter ID Source 2024-02-25 00:00:00 2024-02-25 00:00:00 NITHIN Wild: [address], [place] [address] , Ph. [facility] - GC_GCBZW_Olivia colon Sutherland* [id number] [facility] 2024-02-18 00:00:00 2024-02-18 00:00:00 NITHIN Wild: [address], [place] [address] , Ph. [facility] - GC_GCBZW_Olivia colon Jun* [id number] [facility] 2019-12-22 00:00:00 2019-12-22 00:00:[address] [facility] LISA [id number] 3 [facility] Results Test Description Test Time Test Comments Results Result Co mments Source [facility]
--- NOTE | 2025-02-11 10:20 | EDPHYS ---
Physician Documentation [facility] Name: Leonarda Hopkins Age: 64 yrs Sex: Female : 1960 Arrival Date: 02/11/2025 Time: 09:56 Bed 19 Private MD: ED Physician Yung Clements HPI: 02/11 10:02 This 64 yrs old Female presents to ER via Unassigned with complaints of Poison [facility]- ALL jh7 OVER. 10:02 64-year-old female presents to the ER for a rash x 1 week. She reports that she was jh7 exposed to poison oak and that the rash has been spreading throughout her body. Describes the rash as itchy and reports that she has been taking cool baths with baking soda. Denies any other symptoms at this time.. Historical: - Allergies: 10:23 No Known Allergies; me1 - PMHx: 10:23 Gastric Reflux; Hypercholesterolemia; Hypertension; me1 10:23 neuropathy (Unknown); sciatica (Unknown); me1 - PSHx: 10:23 Appendectomy; hysterectomy; me1 - Immunization history:: Adult Immunizations up to date. - Infectious Disease History:: Denies. - Social history:: Smoking status: Patient denies any tobacco usage or history of. ROS: 10:02 Constitutional: Per HPI jh7 Exam: 10:02 Constitutional: This is a well developed, well nourished patient who is awake, alert, jh7 and in no acute distress. ENT: Nares patent. No nasal discharge, no septal abnormalities noted. Tympanic membranes are normal and external auditory canals are clear. Oropharynx with no redness, swelling, or masses, exudates, or evidence of obstruction, uvula midline. Mucous membranes moist. Cardiovascular: Regular rate and rhythm with a normal S1 and S2. No gallops, murmurs, or rubs. Normal PMI, no JVD. No pulse deficits. Respiratory: Lungs have equal breath sounds bilaterally, clear to auscultation and percussion. No rales, rhonchi or wheezes noted. No increased work of breathing, no retractions or nasal flaring. Abdomen/GI: Soft, non-tender, with normal bowel sounds. No distension or tympany. No guarding or rebound. No evidence of tenderness throughout. MS/ Extremity: Pulses equal, no cyanosis. Neurovascular intact. Full, normal range of motion. Neuro: Awake and alert, GCS 15, oriented to person, place, time, and situation. Motor strength 5/5 in all extremities. Sensory grossly intact. Normal gait. 10:02 Skin: Contact dermatitis, and is diffusely located, Vital Signs: 10:18 BP 127 / 59; Pulse 78; Resp 17; Temp 97.7; Pulse Ox 100% ; Weight 68.04 kg; Height 5 me1 ft. 4 in. ; Pain 0/10; 10:30 BP 140 / 65; Pulse 70; Resp 17; Pulse Ox 100% ; me1 10:18 Body Mass Index 25.75 (68.04 kg, 162.56 cm) me1 10:18 Pain Scale: Adult me1 MDM: 10:02 Medical Screening Exam initiated jh7 10:02 Differential diagnosis: Contact dermatitis, allergic reaction, cellulitis, impetigo. [facility] Data reviewed: vital signs, nurses notes. I considered the following discharge prescriptions or medication management in the emergency department Medications were administered in the Emergency Department. See MAR. Historians other than the Patient: Spouse/Significant Other: . Counseling: I had a detailed discussion with the patient and/or guardian regarding the historical points, exam findings, and any diagnostic results supporting the discharge/admit diagnosis, to return to the emergency department if symptoms worsen or persist or if there are any questions or concerns that arise at home. ED course: Patient advised to not start oral steroids for 72 hours due to getting steroid shot in the ER.. Administered Medications: 10:36 Drug: Dexamethasone IM 10 mg IM once Route: IM; Site: right deltoid; in1 10:37 Follow up: Response: No adverse reaction me1 Disposition Summary: 02/11/25 10:18 Discharge Ordered Notes: Location: Home [facility] Problem: new [facility] Symptoms: are unchanged [facility] Condition: Stable [facility] Diagnosis - Allergic contact dermatitis due to plants, except food [facility] Followup: [facility] - With: Private Physician - When: 2 - 3 days - Reason: Recheck today's complaints Discharge Instructions: - Discharge Summary Sheet [facility] - Poison [facility] Dermatitis [facility] Forms: - Medication Reconciliation Form [facility] - Patient Portal Instructions [facility] - Leadership Thank You Letter [facility] Prescriptions: - Hydroxyzine HCl 25 mg Oral Tablet - take 1 tablet ORAL route every 6 hours As needed; 30 tablet; Refills: 0, jh7 Product Selection Permitted - Prednisone 20 mg Oral Tablet - take 2 tablets ORAL route once daily for 5 days; 10 tablet; Refills: 0, Product jh7 Selection Permitted Addendum: 02/16/2025 06:56 Co-signature as Attending Physician, Yung Clements MD I agree with the assessment and c joshi plan of care. Signatures: Yung Clements MD MD cha Hadash, Jennifer, AREA DEVELOPMENT CONSULTANT AREA DEVELOPMENT CONSULTANT [facility] Glenda Segura RN RN me1 Corrections: (The following items were deleted from the chart) 02/11 10:24 10:23 PMHx: neuropathy (Hypertension); me1 me1 10:24 10:23 PMHx: sciatica (Hypertension); me1 me1
--- NOTE | 2025-02-11 10:51 | ER ---
Nurse's Notes [facility] Name: Leonarda Hopkins Age: 64 yrs Sex: Female : 1960 Arrival Date: 02/11/2025 Time: 09:56 Bed 19 Private MD: Diagnosis: Allergic contact dermatitis due to plants, except food Presentation: 02/11 10:18 Chief complaint: Patient states: got into some poison oak about a week ago and has a me1 rash and itching all over her body. Coronavirus screen: Vaccine status: Patient reports receiving the 2nd dose of the covid vaccine. Ebola Screen: No symptoms or risks identified at this time. Initial Sepsis Screen: Does the patient meet any 2 criteria? No. Patient's initial sepsis screen is negative. Does the patient have a suspected source of infection? No. Patient's initial sepsis screen is negative. Risk Assessment: Do you want to hurt yourself or someone else? Patient reports no desire to harm self or others. Onset of symptoms was February 05, 2025. 10:18 Method Of Arrival: Ambulatory [facility] 10:18 Acuity: MATTHEW 4 me1 Triage Assessment: 10:23 General: Appears uncomfortable, well groomed, well developed, well nourished, Behavior me1 is calm, cooperative, appropriate for age. Pain: Denies pain. EENT: No signs and/or symptoms were reported regarding the EENT system. Neuro: Level of Consciousness is awake, alert, obeys commands, Oriented to person, place, time, situation, Appropriate for age. Cardiovascular: Patient's skin is warm and dry. Respiratory: Airway is patent Respiratory effort is even, unlabored, Respiratory pattern is regular, symmetrical. GI: No signs and/or symptoms were reported involving the gastrointestinal system. : No signs and/or symptoms were reported regarding the genitourinary system. Derm: Rash noted that is on generalized Reports itching. Musculoskeletal: Circulation, motion, and sensation intact. Range of motion: intact in all extremities. Historical: - Allergies: 10:23 No Known Allergies; me1 - PMHx: 10:23 Gastric Reflux; Hypercholesterolemia; Hypertension; me1 10:23 neuropathy (Unknown); sciatica (Unknown); me1 - PSHx: 10:23 Appendectomy; hysterectomy; me1 - Immunization history:: Adult Immunizations up to date. - Infectious Disease History:: Denies. - Social history:: Smoking status: Patient denies any tobacco usage or history of. Screenin:25 [facility] ED Fall Risk Assessment (Adult) History of falling in the last 3 months, me1 including since admission No falls in past 3 months (0 pts) Confusion or Disorientation No (0 pts) Intoxicated or Sedated No (0 pts) Impaired Gait No (0 pts) Mobility Assist Device Used No (0 pt) Altered Elimination No (0 pt) Score/Fall Risk Level 0 - 2 = Low Risk Maintained a safe environment, Provided non-skid footwear, Hourly rounding (assess needs \T\ fall precautionary measures) done. Abuse screen: Denies threats or abuse. Nutritional screening: No deficits noted. Tuberculosis screening: No symptoms or risk factors identified. Assessment: 10:25 General: See triage assessment. me1 Vital Signs: 10:18 BP 127 / 59; Pulse 78; Resp 17; Temp 97.7; Pulse Ox 100% ; Weight 68.04 kg; Height 5 me1 ft. 4 in. ; Pain 0/10; 10:30 BP 140 / 65; Pulse 70; Resp 17; Pulse Ox 100% ; me1 10:18 Body Mass Index 25.75 (68.04 kg, 162.56 cm) me1 10:18 Pain Scale: Adult [facility] ED Course: 10:02 Patient arrived in ED. cj3 10:02 Citlali Quick FNP is [facility]. jh7 10:02 Yung Clements MD is Attending Physician. 7 10:22 Triage completed. me1 10:23 Arm band placed on Patient placed in an exam room. me1 10:25 Patient has correct armband on for positive identification. Bed in low position. Call [facility] light in reach. Side rails up X 1. Provided Education on: POC. Verbalized understanding.. Client placed on continuous cardiac and pulse oximetry monitoring. NIBP monitoring applied. Pulse ox on. NIBP on. 10:25 No provider procedures requiring assistance completed. me1 10:26 Glenda Segura, TOMASA is Primary Nurse. me1 10:49 Patient did not have IV access during this emergency room visit. me1 Administered Medications: 10:36 Drug: Dexamethasone IM 10 mg IM once Route: IM; Site: right deltoid; me1 10:37 Follow up: Response: No adverse reaction me1 Medication: 10:25 VIS not applicable for this client. me1 Outcome: 10:18 Discharge ordered by . [email or web address] 10:49 Discharged to home ambulatory, with significant other, me1 10:49 Condition: stable 10:49 Discharge instructions given to patient, significant other, Instructed on discharge instructions, follow up and referral plans. medication usage, Demonstrated understanding of instructions, follow-up care, medications, Prescriptions given X 1, 10:50 Patient left the ED. me1 Signatures: Citlali Quick, CLERICAL ORDER FILLER CLERICAL ORDER FILLER 7 Glenda Segura, RN RN me1 Lisa Keenan cj3 Corrections: (The following items were deleted from the chart) 10:24 10:23 PMHx: neuropathy (Hypertension); me1 me1 10:24 10:23 PMHx: sciatica (Hypertension); me1 me1
[2025-02-11 10:54] VITALS: TEMP 97.7; O2SAT 100
[2025-02-11 10:56] VITALS: BP 140/65
== END 2025-02-11 10:50 | disposition home or self-care (01) ==
LOC: ER 09:56
DX: L23.7 Allergic contact dermatitis due to plants, except food (principal)
CPT/HCPCS: 96372; 99284; J1100